=== PATIENT | female | born 1955 | race Caucasian/White ===

== ENCOUNTER → 2016-11-29 | Outpatient (CLI) | payer BC, OTHER ==
[~2016-11-29] MED LIST: CITA20TA12 PO; DOCU100T7 PO; FERR325C PO; FISH1CAP15 PO; LISI-552 PO; PANT40SU PO; POTA10TA36 PO
--- OUTSIDE RECORDS SUMMARY | 2016-11-29 14:19 | XMS REPORT | Continuity of Care Document ---
Author Author [facility] Organization [facility] Address Unknown Phone Unavailable Allergies Active Description Code Type Severity Reaction Onset Reported/Identified Relationship to Patient Clinical Status Yes codeine [id number] Drug Allergy Unknown N/A 06/07/2011 Yes morphine [id number] Drug Allergy Unknown N/A 06/07/2011 Medications Problems Date Dx Coded Attending Type Code Diagnosis Diagnosed By 09/04/2014 Ot 793.80 09/04/2014 Ot V76.12 09/04/2014 Ot 793.80 09/04/2014 MERARY MCP Ot V76.12 09/04/2014 MERARY MC FORM BUILDING SUPERVISOR Ot V76.12 09/10/2015 Ot 793.80 09/10/2015 Ot V76.12 09/10/2015 Ot 793.80 09/10/2015 MERARY MC FORM BUILDING SUPERVISOR Ot V76.12 09/10/2015 MERARY MC FORM BUILDING SUPERVISOR Ot V76.12 09/12/2015 RICA SARMIENTO Ot Z12.31 09/26/2015 RICA SARMIENTO Ot Z12.31 09/02/2016 GUDELIA GARLAND DO Ot Z12.31 ENCNTR SCREEN MAMMOGRAM FOR MALIGNANT NE 09/02/2016 GUDELIA GARLAND DO Ot Z12.31 ENCNTR SCREEN MAMMOGRAM FOR MALIGNANT NE 09/20/2016 GUDELIA GARLAND DO Ot Z12.31 ENCNTR SCREEN MAMMOGRAM FOR MALIGNANT NE Procedures Results Encounters ACCT No. Visit Date/Time Discharge Status Pt. Type Provider Facility Loc./Unit Complaint [id number] 09/10/2015 09:26:00 2014 23:59:59 CLS Outpatient RICA SARMIENTO [facility] RAD [id number] 08/27/2014 14:42:00 2013 23:59:59 CLS Outpatient MERARY MC [facility] RAD [id number] 08/14/2013 11:02:00 2012 23:59:59 CLS Outpatient MERARY MC [facility] RAD [id number] 09/01/2016 09:14:00 ACT Outpatient GUDELIA GARLAND DO [facility] RAD SCREENING [id number] 08/21/2012 13:40:00 Document Registration [id number] 08/09/2012 09:59:00 Document Registration
--- NOTE | 2016-11-29 15:15 | Diagnostic Imaging Report ---
INDICATION: Neck pain x2 days. Cervical spine: FINDINGS: AP and lateral views of the cervical spine show normal vertebral body height and alignment. Disc spaces are well maintained. There is no prevertebral soft tissue swelling. IMPRESSION: Negative cervical spine. Dictated by: Dictated on workstation # [id number]
== END ==
LOC: RAD 14:16
PROVIDERS: ATTEND Nurse Practitioner Family
DX: M54.2 Cervicalgia (principal)
CPT/HCPCS: 72040

== ENCOUNTER → 2016-12-09 | Outpatient (CLI) | payer BC, OTHER ==
--- OUTSIDE RECORDS SUMMARY | 2016-12-09 10:21 | XMS REPORT | Continuity of Care Document ---
Author Author [facility] Organization [facility] Address Unknown Phone Unavailable Allergies Active Description Code Type Severity Reaction Onset Reported/Identified Relationship to Patient Clinical Status Yes codeine [id number] Drug Allergy Unknown N/A 06/07/2011 Yes morphine [id number] Drug Allergy Unknown N/A 06/07/2011 Medications Problems Date Dx Coded Attending Type Code Diagnosis Diagnosed By 09/04/2014 Ot 793.80 09/04/2014 Ot V76.12 09/04/2014 Ot 793.80 09/04/2014 MERARY MC Ot V76.12 09/04/2014 MERARY MC Ot V76.12 09/10/2015 Ot 793.80 09/10/2015 Ot V76.12 09/10/2015 Ot 793.80 09/10/2015 MERARY MCP Ot V76.12 09/10/2015 MERARY MC Ot V76.12 09/12/2015 RICA SARMIENTO Ot Z12.31 09/26/2015 RICA SARMIENTO Ot Z12.31 09/02/2016 GUDELIA GARLAND DO Ot Z12.31 ENCNTR SCREEN MAMMOGRAM FOR MALIGNANT NE 09/02/2016 GUDELIA GARLAND DO Ot Z12.31 ENCNTR SCREEN MAMMOGRAM FOR MALIGNANT NE 09/20/2016 GUDELIA GARLAND DO Ot Z12.31 ENCNTR SCREEN MAMMOGRAM FOR MALIGNANT NE 11/30/2016 COOKIE AGOSTO Ot M54.2 CERVICALGIA Procedures Results Encounters ACCT No. Visit Date/Time Discharge Status Pt. Type Provider Facility Loc./Unit Complaint [id number] 09/10/2015 09:26:00 2014 23:59:59 CLS Outpatient RICA SARMIENTO [facility] RAD [id number] 08/27/2014 14:42:00 2013 23:59:59 CLS Outpatient MERARY MC DIET CONSULTANT [facility] RAD [id number] 08/14/2013 11:02:00 2012 23:59:59 CLS Outpatient MERARY MC DIET CONSULTANT [facility] RAD [id number] 11/29/2016 14:16:00 ACT Outpatient COOKIE AGOSTOP [facility] RAD CERVICAL PAIN [id number] 09/01/2016 09:14:00 ACT Outpatient GUDELIA GARLAND DO [facility] RAD SCREENING [id number] 08/21/2012 13:40:00 Document Registration [id number] 08/09/2012 09:59:00 Document Registration
--- NOTE | 2016-12-09 15:13 | Diagnostic Imaging Report ---
INDICATION: Cough, shortness of breath. No priors for comparison. FINDINGS: Patchy nodular five-lobed infiltrative pattern is present which could reflect nodular multifocal pneumonia or a pattern of metastatic disease. Unless there are convincing clinical features of acute pneumonia, would recommend CT at this time as further evaluation. Even if there are convincing clinical features of pneumonia, radiographic followup to confirm resolution or improvement is appropriate. No effusion or pneumothorax. IMPRESSION: Innumerable nodular patchy foci bilaterally are indeterminate inflammatory versus neoplastic. Followup recommended based upon the clinical situation as described. Dictated by: Dictated on workstation # [id number]
== END ==
LOC: RAD 10:17
PROVIDERS: ATTEND Family Medicine
DX: R91.8 Other nonspecific abnormal finding of lung field (principal)
CPT/HCPCS: 71020

== ENCOUNTER 2016-12-20 05:40 | Outpatient (CLI) | payer BC, OTHER ==
[~2016-12-20] VITALS: Ht 156.2 cm; Wt 79.4 kg
--- OUTSIDE RECORDS SUMMARY | 2016-12-20 05:43 | XMS REPORT | Continuity of Care Document ---
Author Author [facility] Organization [facility] Address Unknown Phone Unavailable Allergies Active Description Code Type Severity Reaction Onset Reported/Identified Relationship to Patient Clinical Status Yes codeine [id number] Drug Allergy Unknown N/A 06/07/2011 Yes morphine [id number] Drug Allergy Unknown N/A 06/07/2011 Medications Problems Date Dx Coded Attending Type Code Diagnosis Diagnosed By 09/04/2014 Ot 793.80 09/04/2014 Ot V76.12 09/04/2014 Ot 793.80 09/04/2014 MERARY MCP Ot V76.12 09/04/2014 MERARY MC DELIVERY MOTORCYCLE DRIVER Ot V76.12 09/10/2015 Ot 793.80 09/10/2015 Ot V76.12 09/10/2015 Ot 793.80 09/10/2015 MERARY MC DELIVERY MOTORCYCLE DRIVER Ot V76.12 09/10/2015 MERARY MC DELIVERY MOTORCYCLE DRIVER Ot V76.12 09/12/2015 RICA SARMIENTO DELIVERY MOTORCYCLE DRIVER Ot Z12.31 09/26/2015 RICA SARMIENTO DELIVERY MOTORCYCLE DRIVER Ot Z12.31 09/02/2016 GUDELIA GARLAND DO S Ot Z12.31 ENCNTR SCREEN MAMMOGRAM FOR MALIGNANT NE 09/02/2016 TOÑITO GARLAND DOLINE S Ot Z12.31 ENCNTR SCREEN MAMMOGRAM FOR MALIGNANT NE 09/20/2016 GUDELIA GARLAND DO S Ot Z12.31 ENCNTR SCREEN MAMMOGRAM FOR MALIGNANT NE 11/30/2016 COOKIE AGOSTO DELIVERY MOTORCYCLE DRIVER Ot M54.2 CERVICALGIA 12/16/2016 Ot 793.80 UNSPEC ABNORMAL MAMMOGRAM 12/16/2016 Ot V76.12 OTH SCREEN MAMMO-MALIGN NEOPLASM OF TIMBO 12/16/2016 Ot 793.80 UNSPEC ABNORMAL MAMMOGRAM 12/16/2016 MERARY MC DELIVERY MOTORCYCLE DRIVER Ot V76.12 OTH SCREEN MAMMO-MALIGN NEOPLASM OF TIMBO 12/16/2016 MERARY MC DELIVERY MOTORCYCLE DRIVER Ot V76.12 OTH SCREEN MAMMO-MALIGN NEOPLASM OF TIMBO 12/16/2016 RICA SARMIENTO Ot Z12.31 ENCNTR SCREEN MAMMOGRAM FOR MALIGNANT NE 12/16/2016 GUDELIA GARLAND DO Ot Z12.31 ENCNTR SCREEN MAMMOGRAM FOR MALIGNANT NE 12/16/2016 COOKIE AGOSTO Ot M54.2 CERVICALGIA 12/16/2016 GUDELIA GARLAND DO Ot R91.8 OTHER NONSPECIFIC ABNORMAL FINDING OF ASAF 12/16/2016 COOKIE AGOSTO Ot M54.2 CERVICALGIA 12/16/2016 COOKIE AGOSTO Ot M54.2 CERVICALGIA Procedures Results Encounters ACCT No. Visit Date/Time Discharge Status Pt. Type Provider Facility Loc./Unit Complaint [id number] 09/10/2015 09:26:00 2014 23:59:59 CLS Outpatient RICA SARMIENTO [facility] RAD SCREENING [id number] 08/27/2014 14:42:00 2013 23:59:59 CLS Outpatient MERARY MC [facility] RAD ROUTINE [id number] 08/14/2013 11:02:00 2012 23:59:59 CLS Outpatient MERARY MC [facility] RAD SCREENING [id number] 12/20/2016 05:40:00 ACT Outpatient KELLY MASSEY MD [facility] PREOP SCREENING;ANEMIA [id number] 12/09/2016 10:17:00 ACT Outpatient GUDELIA GARLAND DO [facility] RAD COUGH [id number] 11/29/2016 14:16:00 ACT Outpatient COOKIE AGOSTO [facility] RAD CERVICAL PAIN [id number] 09/01/2016 09:14:00 ACT Outpatient GUDELIA GARLAND DO [facility] RAD SCREENING [id number] 08/21/2012 13:40:00 Document Registration [id number] 08/09/2012 09:59:00 Document Registration
[2016-12-20] MEDS ORDERED: DOCU100T7 PO (11:55)
[2016-12-20] MEDS ORDERED: PANT40SU PO (11:55)
[2016-12-20] MEDS ORDERED: CITA20TA12 PO (11:55)
[2016-12-20] MEDS ORDERED: FISH1CAP15 PO (11:55)
[2016-12-20] MEDS ORDERED: POTA10TA36 PO (11:55)
[2016-12-20] MEDS ORDERED: FERR325C PO (11:55)
[2016-12-20] MEDS ORDERED: LISI-552 PO (11:55)
== END 2016-12-20 12:00 ==
LOC: PREOP 05:40
PROVIDERS: ATTEND Surgery Pediatric Surgery
DX: Z01.818 Encounter for other preprocedural examination (principal); Z12.11 Encounter for screening for malignant neoplasm of colon; D64.9 Anemia, unspecified

== ENCOUNTER → 2016-12-20 | Outpatient (CLI) | payer BC, OTHER ==
--- OUTSIDE RECORDS SUMMARY | 2016-12-20 10:18 | XMS REPORT | Continuity of Care Document ---
Author Author [facility] Organization [facility] Address Unknown Phone Unavailable Allergies Active Description Code Type Severity Reaction Onset Reported/Identified Relationship to Patient Clinical Status Yes codeine [id number] Drug Allergy Unknown N/A 06/07/2011 Yes morphine [id number] Drug Allergy Unknown N/A 06/07/2011 Medications Problems Date Dx Coded Attending Type Code Diagnosis Diagnosed By 09/04/2014 Ot 793.80 09/04/2014 Ot V76.12 09/04/2014 Ot 793.80 09/04/2014 MERARY MCP Ot V76.12 09/04/2014 MERARY MC HAZARDOUS MATERIALS ANALYST Ot V76.12 09/10/2015 Ot 793.80 09/10/2015 Ot V76.12 09/10/2015 Ot 793.80 09/10/2015 MERARY MC HAZARDOUS MATERIALS ANALYST Ot V76.12 09/10/2015 MERARY MC HAZARDOUS MATERIALS ANALYST Ot V76.12 09/12/2015 RICA SARMIENTO HAZARDOUS MATERIALS ANALYST Ot Z12.31 09/26/2015 RICA SARMIENTO HAZARDOUS MATERIALS ANALYST Ot Z12.31 09/02/2016 GUDELIA GARLAND DO S Ot Z12.31 ENCNTR SCREEN MAMMOGRAM FOR MALIGNANT NE 09/02/2016 TOÑITO GARLAND DOLINE S Ot Z12.31 ENCNTR SCREEN MAMMOGRAM FOR MALIGNANT NE 09/20/2016 GUDELIA GARLAND DO S Ot Z12.31 ENCNTR SCREEN MAMMOGRAM FOR MALIGNANT NE 11/30/2016 COOKIE AGOSTO HAZARDOUS MATERIALS ANALYST Ot M54.2 CERVICALGIA 12/16/2016 Ot 793.80 UNSPEC ABNORMAL MAMMOGRAM 12/16/2016 Ot V76.12 OTH SCREEN MAMMO-MALIGN NEOPLASM OF TIMBO 12/16/2016 Ot 793.80 UNSPEC ABNORMAL MAMMOGRAM 12/16/2016 MERARY MC HAZARDOUS MATERIALS ANALYST Ot V76.12 OTH SCREEN MAMMO-MALIGN NEOPLASM OF TIMBO 12/16/2016 MERARY MC HAZARDOUS MATERIALS ANALYST Ot V76.12 OTH SCREEN MAMMO-MALIGN NEOPLASM OF [...] Status Pt. Type Provider Facility Loc./Unit Complaint [id number] 09/10/2015 09:26:00 2014 23:59:59 CLS Outpatient RICA SARMIENTO [facility] RAD SCREENING [id number] 08/27/2014 14:42:00 2013 23:59:59 CLS Outpatient MERARY MC [facility] RAD ROUTINE [id number] 08/14/2013 11:02:00 2012 23:59:59 CLS Outpatient MERARY MC [facility] RAD SCREENING [id number] 12/20/2016 05:40:00 ACT Outpatient KELLY MASSEY MD [facility] PREOP SCREENING;ANEMIA [id number] 12/09/2016 10:17:00 ACT Outpatient GUDELIA GARLAND DO [facility] RAD COUGH [id number] 11/29/2016 14:16:00 ACT Outpatient COOKIE AGOSTO [facility] RAD CERVICAL PAIN [id number] 09/01/2016 09:14:00 ACT Outpatient GUDELIA GARLAND DO [facility] RAD SCREENING [id number] 08/21/2012 13:40:00 Document Registration [id number] 08/09/2012 09:59:00 Document Registration
--- NOTE | 2016-12-20 11:33 | Diagnostic Imaging Report ---
EXAMINATION: PA and lateral views of the chest. INDICATION: Cough. Pneumonia. COMPARISON: 12/09/2016. FINDINGS: Bilateral infiltrates are seen similar to the previous exam with nodular components noted. The heart size is normal. No effusion or pneumothorax. The mediastinum and tessa appear unremarkable. There is a gastric band seen in the upper abdomen. IMPRESSION: Stable extensive bilateral infiltrates with nodules seen. This could possibly be infectious in etiology. If the patient does not have clinical picture of an active pneumonia, then CT evaluation would be recommended. Otherwise, followup chest x-ray in six weeks after treatment to document resolution would be recommended. Dictated by: Dictated on workstation # [id number]
== END ==
LOC: RAD 10:15
PROVIDERS: ATTEND Family Medicine
DX: J18.9 Pneumonia, unspecified organism (principal)
CPT/HCPCS: 71020

== ENCOUNTER 2016-12-22 10:33 | Day surgery (SDC) | payer BC, OTHER ==
[~2016-12-22] VITALS: Ht 156.2 cm; Wt 79.4 kg
--- OUTSIDE RECORDS SUMMARY | 2016-12-22 10:36 | XMS REPORT | Continuity of Care Document ---
Author Author [facility] Organization [facility] Address Unknown Phone Unavailable Care Team Providers Care Oil Lease Buyer Name Role Phone GUDELIA GARLAND DO PCP Insurance Providers Payer Name Policy Number Subscriber Name Relationship [facility] [id number] Dejuan Luis 18 Self / Same As Patient Self Pay Pending [facility] Apprv [id number] Dejuan Luis 18 Self / Same As Patient Problems No problem information available. Medications Current Home Medications Medication Dose Units Route Directions Days/Qty Instructions Start Date Lisinopril 20 Mg 20 Mg Oral Daily 12/20/16 Ferrous Sulfate 325 Mg 325 Mg Oral Daily 12/20/16 Potassium Chloride 10 Meq 10 Meq Oral Daily 12/20/16 Docusate Sodium 100 Mg 100 Mg Oral Daily 12/20/16 Fish Oil/Dha/Epa 1 Each 1 Each Oral Daily 12/20/16 Citalopram Hydrobromide 20 Mg 20 Mg Oral Daily 12/20/16 Pantoprazole Sodium 40 Mg 40 Mg Oral Daily 12/20/16 Social History Social History Problem Response Recorded Date/Time Recent Foreign Travel No 12/20/2016 10:13am Hospital Discharge Instructions Current inpatient/outpatient. Discharge instructions are currently unavailable. Plan of Care Prescriptions Functional Status No functional status results. Allergies, Adverse Reactions, Alerts Allergen Type Severity Reaction Status Last Updated Morphine Allergy Unknown Active 12/20/16 Codeine Allergy Unknown Active 12/20/16 Immunizations No immunization records. Vital Signs Acute Vital Signs Vital Response Date/Time Height (Feet) 5 feet 12/20/2016 11:51am Height (Inches) 1.50 inches 12/20/2016 11:51am Height (Calculated Centimeters) 156.108762 cm 12/20/2016 11:51am Weight (Pounds) 175 pounds 12/20/2016 11:51am Weight (Ounces) 0.0 oz 12/20/2016 11:51am Weight (Calculated Grams) 08347.67 gm 12/20/2016 11:51am Weight (Calculated Kilograms) 79.518651 kilograms 12/20/2016 11:51am Calculated BMI 32.5 12/20/2016 11:51am Results No known relevant diagnostic tests, laboratory data and/or discharge summary. Procedures No known history of procedures. Encounters Encounter Location Arrival/Admit Date Discharge/Depart Date Attending Provider Registered Clinic [facility] 12/20/16 10:15am GUDELIA GARLAND DO Departed Clinic [facility] 12/20/16 5:40am 12/20/16 12: 00pm KELLY MASSEY MD Registered Clinic [facility] 12/09/16 10:17am GUDELIA GARLAND DO Registered Clinic [facility] 11/29/16 2:16pm COOKIE AGOSTO
--- OUTSIDE RECORDS SUMMARY | 2016-12-22 10:37 | XMS REPORT | Continuity of Care Document ---
Author Author [facility] Organization [facility] Address Unknown Phone Unavailable Care Team Providers Care Manufacturing Associate Name Role Phone GUDELIA GARLAND DO PCP Insurance Providers Payer Name Policy Number Subscriber Name Relationship [facility] [id number] Dejuan Luis 18 Self / Same As Patient Self Pay Pending [facility] Apprv [id number] Dejuan Luis 18 Self / Same As [...] 1.50 inches 12/20/2016 11:51am Height (Calculated Centimeters) 156.522040 cm 12/20/2016 11:51am Weight (Pounds) 175 pounds 12/20/2016 11:51am Weight (Ounces) 0.0 oz 12/20/2016 11:51am Weight (Calculated Grams) 83058.67 gm 12/20/2016 11:51am Weight (Calculated Kilograms) 79.694271 kilograms 12/20/2016 11:51am Calculated BMI 32.5 12/20/2016 11:51am Results No known relevant diagnostic tests, laboratory data and/or discharge summary. Procedures No known history of procedures. Encounters Encounter Location Arrival/Admit Date Discharge/Depart Date Attending Provider Registered Clinic [facility] 12/20/16 10:15am GUDELIA GARLAND DO Departed Clinic [facility] 12/20/16 5:40am 12/20/16 12: 00pm KELLY MASSEY MD Registered Clinic [facility] 12/09/16 10:17am GUDELIA GARLAND DO Registered Clinic [facility] 11/29/16 2:16pm COOKIE AGOSTO
[2016-12-22] MEDS ORDERED: NALOXONE 0.4 MG/ML 1 ML (NARCAN) VIAL IVP PRN (10:45)
[2016-12-22] MEDS ORDERED: LIDOCAINE JELLY 2% (XYLOCAINE) 5 ML TUBE MM PRN (10:45)
[2016-12-22] MEDS ORDERED: FLUMAZENIL (ROMAZICON) 0.1 MG/ML 5 ML VIAL INJ PRN (10:45)
[2016-12-22] MEDS ORDERED: NS IV 500 ML 500 ML IV SCH (10:45)
[2016-12-22] MEDS ORDERED: NS IV 500 ML 500 ML ONE ×2 (10:54→12:27)
--- NOTE | 2016-12-22 10:56 | Progress Note-Pre Operative ---
Pre-Operative Progress Note H&P Reviewed The H&P was reviewed, patient examined and no changes noted. Date H&P Reviewed: Dec 22, 2016 Time H&P Reviewed: 10:50 Pre-Operative Diagnosis: GERD, anemia KELLY MASSEY MD Dec 22, 2016 10:56 am
--- NOTE | 2016-12-22 10:56 | Conscious Sedation/ASA ---
Conscious Sedation Pre-Proced Time Reviewed: 10:50 ASA Class: 2 Airway Mallampati Classification: ([place] appropriate class) I. II. III, IV Lungs Heart ASA score ASA 1: a normal healthy patient ASA 2: a patient with a mild systemic disease (mid diabetes, controlled hypertension, obesity ASA 3: a patient with a severe systemic disease that limits activity (angina , COPD, prior Myocardial infarction) ASA 4: a patient with an incapacitating disease that is a constant threat to life (CHF, renal failure) ASA 5: a moribund patient not expected to survive 24 hrs. (ruptured aneurysm) ASA 6: a declared brain patient whose organs are being harvested. For emergent operations, add the letter E after the classification Grade 2 Sedation Plan: Analgesia, Amnesia, Plan communicated to team members, Discussed options with patient/fam, Discussed risks with patient/fam Note The patient is an appropriate candidate to undergo the planned procedure, sedation, and anesthesia. The patient immediately re-assessed prior to indication. KELLY MASSEY MD Dec 22, 2016 10:56 am
[2016-12-22] MEDS ORDERED: ACETAMINOPHEN 325 MG TABLET/CAPLET (TYLENOL) PO PRN (11:00)
[2016-12-22] MEDS ORDERED: ONDANSETRON 4 MG/2 ML (SDV) Z0FRAN IV PRN (11:00)
[2016-12-22] MEDS ORDERED: HYDROcodone/APAP 5 MG/325 MG (LORTAB) TAB PO PRN (11:00)
[2016-12-22 11:37] VITALS: BP 119/43
[2016-12-22] MEDS ORDERED: fentaNYL INJECTION 100 MCG/2 ML AMP ONE ×2 (11:48→11:49)
[2016-12-22] MEDS ORDERED: MIDAZOLAM 2 MG/2 ML (VERSED) VIAL ONE ×3 (11:48)
[2016-12-22] MEDS: HURRICAINE EXT TUBE (BENZOCAINE) XX PRN ×2 (11:53→11:57)
[2016-12-22] MEDS: fentaNYL INJECTION 100 MCG/2 ML AMP IVP PRN ×4 (11:54→12:13)
[2016-12-22] MEDS: MIDAZOLAM 2 MG/2 ML (VERSED) VIAL IVP PRN ×3 (11:55→12:10)
--- NOTE | 2016-12-22 12:39 | Progress Note-Post Operative ---
Post-Operative Progess Note Pre-Operative Diagnosis GERD, anemia Post-Operative Diagnosis reflux esophagitis(class B), intact band, moderate gastritis. chronic stage 2 ext and int hemorrhoids, moderate sigmoid diverticulosis, polyp sigmoid Post-Op Procedure Note Date of Procedure: Dec 22, 2016 Name of Procedure: EGD with bx Colonoscopy with bx Anesthesia Type CS Estimated blood loss (mL): minimal Specimen(s) collected ge jxn, antrum, sigmoid polyp KELLY MASSEY MD Dec 22, 2016 12:39 pm
--- NOTE | 2016-12-22 12:40 | Discharge Inst-Surgical ---
D/C Lap Instructions-SHILPA Follow Up 5 years Activity as tolerated High Fiber Diet 25g or more per day Avoid Alcohol, Caffeine, Spicy [place] and Acid foods. Drink 64 fluid oz or more of fluids per day. Symptoms to Report: Fever over 101 degree F, Nausea/Vomiting If any problems/questions: Contact your physician or go to Emergency Room KELLY MASSEY MD Dec 22, 2016 12:40 pm
[2016-12-22 13:15] VITALS: BP 90/48
[2016-12-22 13:41] VITALS: BP 96/52
[2016-12-22 13:50] VITALS: BP 96/52
--- NOTE | 2016-12-24 07:34 | OPERATIVE REPORT ---
PROCEDURE PHYSICIAN: KELLY GONGORA DATE OF PROCEDURE: 12/22/2016 ATTENDING PRIMARY CARE PHYSICIAN: Dr. Shania Mcdonnell. PREOPERATIVE DIAGNOSES: 1. Gastroesophageal reflux disease. 2. Anemia. 3. Constipation. POSTOPERATIVE DIAGNOSES: 1. Reflux esophagitis, class B. 2. Intact laparoscopic adjustable gastric band with no erosion or slippage. 3. Moderate gastritis. 4. No active bleeding. 5. Chronic stage II external and internal hemorrhoids. 6. Moderate sigmoid diverticulosis. 7. Small sigmoid polyp 2 to 3 mm in size. PROCEDURES: 1. EGD with biopsy. 2. Colonoscopy with biopsy. SURGEON: Dr. Gongora. ANESTHESIA: Conscious sedation. ESTIMATED BLOOD LOSS: Minimal. FINDINGS: EGD: 1. Reflux esophagitis, class B. 2. Intact laparoscopic adjustable gastric band. No band slippage or erosion. 3. Moderate severity gastritis. 4. No ulcers, polyps or any neoplasms, as well as no active bleeding sources. 5. Pylorus and duodenum appeared normal. COLONOSCOPY: 1. Chronic, stage II external and internal hemorrhoids, not actively edematous or inflamed and no bleeding. 2. There is a small polyp of the sigmoid colon, approximately 2 to 3 mm in size. 3. A moderate severity sigmoid diverticulosis with no bleeding. 4. The remainder of the colon was normal. DISPOSITION: The patient tolerated the procedure well. BRIEF HISTORY: Ms. Klarissa Luis is a 61-year-old female who has a history of gastroesophageal reflux disease. She was also found to be anemic recently. She does not report any known red blood per rectum nor any dark tarry stools. Her last colonoscopy was greater than 10 years ago. She does report that that she has had a history of constipation in the past, requiring stool softeners as well as laxatives. PROCEDURE: The patient was brought to the endoscopy suite, laid in left lateral decubitus position with the head slightly elevated. After adequate IV pain and sedative medications and conscious sedation anesthesia, the mouthpiece was applied. The endoscope was placed in the mouth, visualizing the pharynx and hypopharyngeal region. Vocal cords, epiglottis and vallecula identified and appeared normal. The endoscope was then intubated into the esophageal opening and the esophagus insufflated. The endoscope was advanced through the first, second, and 3rd portions esophagus at the level of the GE junction, a reflux esophagitis, class B identified. There were no ulcers or strictures identified in this region. A biopsy was taken of the GE junction with forceps of visualization of good hemostasis. The gastric pouch appeared normal in terms of size. The endoscope was then easily advanced through the band and into the stomach. The endoscope was then retroflexed visualizing an intact lap band with no erosions or slippage. There was a moderate severity gastritis. There no ulcers, polyps or any neoplasms, as well as no active bleeding sources. A biopsy was taken of the stomach antrum, with forceps with visualization of good hemostasis. The endoscope was advanced through the pylorus and first and second portions of the duodenum, which appeared normal. The endoscope was then slowly withdrawn while look and suctioning residual air no additional findings. The patient tolerated this portion of the procedure well. For her reflux, we will recommend the necessary lifestyle and diet accommodation including smaller, more frequent meals, avoidance of eating at night, as well as head elevation while laying supine. She also needs to proceed with a high protein diet with lean meat protein sources first to promote restriction. However, once she feels the sensation of fullness she needs to stop eating. COLONOSCOPY: Under the same conscious sedation anesthesia we then proceeded with the colonoscopy portion the procedure. A digital rectal examination was performed which revealed chronic stage II external and internal hemorrhoids, not actively edematous or inflamed and no bleeding. Normal sphincter tone was felt and there were no palpable masses. The endoscope was then intubated and the anus rectum gently insufflated. The endoscope was then advanced through the valves of Romero of the rectum with no polyps or any neoplasms identified. Through the sigmoid colon, a small polyp identified approximately 2 to 3 mm in size. This was biopsied and destroyed using forceps and electrocautery with visualization of good hemostasis. The endoscope was advanced through the sigmoid colon where a moderate sigmoid diverticulosis identified. There were no mucosal inflammatory changes to indicate any active diverticulitis as well as no bleeding. The endoscope was then advanced through the remainder of the descending, transverse, and ascending colon of the cecum. These segments were normal. The endoscope was then slowly withdrawn while taking a second look and suctioning residual air with no additional findings. The patient tolerated this portion the procedure well. We will recommend a high fiber diet with at least 25 to 30 grams of fiber per day, as well as at least 64 fluid ounces of water daily to promote soft stools on a daily basis. We will recommend a follow-up colonoscopy in 5 years. Job ID: [id number] Dictated Date: 12/22/2016 12:32:57 Camera Tuning Engineer Date: 12/24/2016 07:22:41 / schuyler GRANADOS
== END 2016-12-22 13:50 | disposition home or self-care (01) ==
LOC: ENDO 10:33
PROVIDERS: ATTEND Surgery Pediatric Surgery
DX: K21.0 Gastro-esophageal reflux disease with esophagitis (principal); K63.5 Polyp of colon; K29.60 Other gastritis without bleeding; K64.1 Second degree hemorrhoids; K57.30 Diverticulosis of large intestine without perforation or abscess without bleeding; Z87.891 Personal history of nicotine dependence; Z79.899 Other long term (current) drug therapy; I10 Essential (primary) hypertension; E78.00 Pure hypercholesterolemia, unspecified; D64.9 Anemia, unspecified; F32.9 Major depressive disorder, single episode, unspecified; Z98.84 Bariatric surgery status
CPT/HCPCS: 88305

== ENCOUNTER → 2017-01-14 | Outpatient (CLI) | payer BC ==
--- NOTE | 2017-01-14 14:10 | Diagnostic Imaging Report ---
PROCEDURE: CT chest without contrast. TECHNIQUE: Multiple contiguous axial images were obtained through the chest without the use of intravenous contrast. INDICATION: Followup of bilateral nodules. FINDINGS: There are nodules scattered diffusely throughout both lungs. Some of these have an irregular spiculated pattern. These range from size of 3 mm up to 2 cm. These appear somewhat confluent in the superior segments of the lower lobes bilaterally. There is no mediastinal or hilar adenopathy of pathologic size. There is no mediastinal or hilar adenopathy of pathologic size. Bone windows show no destructive bony lesions. No pleural effusions or pericardial effusions. The adrenal glands are not enlarged. Lap-Band is noted to be present and appears in good position. IMPRESSION: Diffuse nodular infiltrative process noted throughout both lungs. This could represent atypical infectious process; however, a metastatic lung disease would also be in the differential. Dictated by: Dictated on workstation # [id number]
== END ==
LOC: RAD 13:12
PROVIDERS: ATTEND Family Medicine
DX: R91.8 Other nonspecific abnormal finding of lung field (principal)
CPT/HCPCS: 71250

== ENCOUNTER 2017-02-10 06:53 | Day surgery (SDC) | payer BC ==
[~2017-02-10] VITALS: Ht 156.2 cm; Wt 79.8 kg
[2017-02-10] VITALS (13 sets, daily range): BP systolic 101–144; BP diastolic 58–78
[2017-02-10 07:27] LABS: MEAN PLATELET VOLUME 10.5 FL (7.4-10.4); RED BLOOD COUNT 4.22 10^6/uL (4.35-5.85); RED CELL DISTRIBUTION WIDTH 14.8 % (10.0-14.5); WHITE BLOOD COUNT 8.8 10^3/uL (4.3-11.0)
[2017-02-10 07:38] LABS: INR 1.1 (0.8-1.4)
[2017-02-10] MEDS ORDERED: LIDOCAINE 1% INJ 20 ML (XYLOCAINE) VIAL INJ ONE (08:45)
[2017-02-10] MEDS ORDERED: fentaNYL INJECTION 100 MCG/2 ML AMP IVP PRN (08:45)
--- NOTE | 2017-02-10 09:59 | Pre-Procedure Progress Note ---
Pre-Procedure Progress Note H&P Reviewed The H&P was reviewed, patient examined and no changes noted. Date H&P Reviewed: Feb 10, 2017 Time H&P Reviewed: 09:00 Pre-Procedure Diagnosis: lung MARCOS Gilliam MD Feb 10, 2017 09:59
[2017-02-10] MEDS ORDERED: HYDROcodone/APAP 5 MG/325 MG (LORTAB) TAB PO PRN (10:00)
--- NOTE | 2017-02-10 10:00 | Discharge Instructions ---
Discharge Instructions Home Medicaitons Changes Hold any current blood thinner home medications for [24 hours]. MARCOS LUCAS MD Feb 10, 2017 10:00
--- NOTE | 2017-02-10 10:25 | Diagnostic Imaging Report ---
EXAMINATION: CT-guided biopsy-lung. INDICATION: Left lower lobe mass. Numerous lung nodules. Current history and physical and other medical records are reviewed prior to the procedure. CONSENT: Informed consent was obtained from the patient. The risks, benefits, potential complications and alternatives were reviewed and all questions answered to the patient's satisfaction. The patient's vital signs, cardiac rhythm, and pulse oximetry were observed throughout the procedure by qualified nursing personnel. Sedation/medications: none. FINDINGS: Left lower lobe mass. PROCEDURE: After maximal sterile barrier technique preparation and draping, 1% lidocaine was utilized for local anesthesia. With the patient in left side down position, and via posterior intercostal approach, a 19-gauge guide needle is introduced into the left lower lobe mass under CT scan guidance. After confirming adequate positioning with saved CT images, multiple 20 gauge core biopsy specimens were obtained. 3 cc of autologous blood patch injected in the tract as the guide needle was removed The patient tolerated the procedure well with no immediate complications. IMPRESSION: Successful CT-guided biopsy of left lower lobe mass. Dictated by: Dictated on workstation # [id number]
--- NOTE | 2017-02-10 14:31 | Diagnostic Imaging Report ---
Portable upright radiograph of the chest. INDICATION: Post lung biopsy. FINDINGS: There are numerous pulmonary nodules bilaterally. The biopsy was performed from the left lower lobe dominant lesion with no mass identified. Post biopsy changes with increased infiltrate in the left lower lobe compared to 12/20/2016 are seen. The heart size is normal. No effusion or pneumothorax. IMPRESSION: Numerous pulmonary nodules with left lower lobe post biopsy changes. No pneumothorax. Dictated by: Dictated on workstation # [id number]
== END 2017-02-10 14:28 | disposition home or self-care (01) ==
LOC: RAD 06:53 → SURG 10:48 → RAD 14:28
PROVIDERS: ATTEND Family Medicine
DX: C34.32 Malignant neoplasm of lower lobe, left bronchus or lung (principal)
CPT/HCPCS: 36415; 71035; 77012; 81235; 82962; 85027; 85610; 85730; 88305; 88341; 88342; 88344; 88381

== ENCOUNTER → 2017-02-24 | Outpatient (CLI) | payer BC ==
[~2017-02-24] MED LIST changes: +BARIUM SUSPENSION 2.1% (VANILLA SILQ) 450 ML PO ONE; +CATHETER FLUSH 10 ML SYR IV PRN; +IOHEXOL 350 MG/ML 100 ML (OMNIPAQUE 350) VIAL IV ONE; +NS 100 ML (IVPB) BAG IV ONE
--- NOTE | 2017-02-24 16:51 | Diagnostic Imaging Report ---
PROCEDURE: CT of the chest and pelvis with contrast and CT of the abdomen with and without contrast. TECHNIQUE: Precontrast acquisitions were acquired through the abdomen. Multiple contiguous axial images were obtained through the chest, abdomen and pelvis after administration of intravenous contrast. INDICATION: Lung cancer. 100 mL of Omnipaque-350 is administered intravenously. COMPARISON: 01/14/2017. No other studies are available for comparison. FINDINGS: CT CHEST: There are innumerable lung nodules in the chest seen bilaterally with some dominant masses up to 3 cm in the right lower lobe and up to 2.7 cm in the left lower lobe. Some of the nodules are confluent and other innumerable subcentimeter lymph nodes are seen diffusely in the lungs. There is a new small right pleural effusion. A tiny left pleural effusion similar to the prior study is seen. There is no significant mediastinal, hilar, or axillary lymph node enlargement seen. There is mild dilatation of the distal esophagus. This could be related to the gastric band or pseudoachalasia. The distal esophageal wall thickening also is probably related to esophagitis. The thoracic aorta is normal in caliber. The heart size is normal. No pericardial effusion. The osseous structures demonstrate degenerative changes with bridging syndesmophytes in the gfx-pl-zpfvr thoracic spine levels. CT ABDOMEN AND PELVIS: A gastric band is seen in place. There is a reservoir in the anterior abdominal wall and a catheter also noted connecting the reservoir to the gastric band. The liver demonstrates minimal intrahepatic biliary dilatation. The gallbladder is not seen, presumably related to cholecystectomy. Correlate with history. The spleen is not enlarged. The adrenals appear unremarkable. The pancreatic duct is mildly dilated in the distal body and tail portions with no significant dilatation in the rest of the pancreas. There is subtle decreased enhancement and fullness in the pancreatic body seen. A pancreatic mass is not excluded. The area is difficult to delineate but is about 2.5 cm in size. The kidneys have symmetric enhancement and contrast excretion. There is no hydronephrosis. The unenhanced phase demonstrates no stones. There is a complex large cystic and solid mass in the pelvis measuring 15.4 x 12.7 x 14.4 cm abutting the superior aspect of the uterus and is inseparable from the adnexa. This is concerning for an ovarian neoplasm. The mass extends from the pelvis into the lower central aspect of the abdomen. The abdominal aorta is normal in caliber. No para-aortic significantly enlarged lymph node is seen. There is no bowel obstruction. The sigmoid colon however appears to be compressed by the pelvic mass. The osseous structures demonstrate no destructive mass. Prominent degenerative changes in the lower lumbar spine and SI joints seen. IMPRESSION: CT CHEST: 1. Innumerable pulmonary nodules seen bilaterally compatible with metastasis. Dominant masses in the lower lobes are seen. 2. Dilatation in the distal esophagus may relate to tight gastric band or functional abnormality. It is also thickened suggestive of esophagitis.. CT ABDOMEN AND PELVIS: 1. A 15.4 cm pelvic complex mass inseparable from the adnexa and uterus, which probably relates to a malignant ovarian neoplasm. 2. Dilatation of the pancreatic duct in the tail with subtle fullness and hypodensity in the pancreatic body. A pancreatic mass is not excluded. Further evaluation with enhanced MRI of the abdomen, pancreatic mass protocol is recommended. Report faxed to Dr. Bailey at 4:50 p.m. 02/24/2017/cb Dictated by: Dictated on workstation # [id number]
== END ==
LOC: RAD 14:27
PROVIDERS: ATTEND Internal Medicine Hematology & Oncology
DX: C34.32 Malignant neoplasm of lower lobe, left bronchus or lung (principal)
CPT/HCPCS: 71260; 74178

== ENCOUNTER → 2017-03-01 | Outpatient (CLI) | payer BC ==
[~2017-03-01] MED LIST changes: -BARIUM SUSPENSION 2.1% (VANILLA SILQ) 450 ML PO ONE; -CATHETER FLUSH 10 ML SYR IV PRN; -IOHEXOL 350 MG/ML 100 ML (OMNIPAQUE 350) VIAL IV ONE; -NS 100 ML (IVPB) BAG IV ONE
--- NOTE | 2017-03-01 16:17 | Diagnostic Imaging Report ---
EXAMINATION: PET-CT TECHNIQUE: Serum glucose level at the time of the study is: 106 mg/dL. 11.5 mCi of FDG was administered intravenously followed by obtaining PET images with corresponding noncontrast CT scan images. The CT scan was performed for anatomic correlation and attenuation correction and was not performed according to the diagnostic protocol of the areas covered. The scan was performed from the head to mid thighs. INDICATION: Initial staging of lung cancer. FINDINGS: There is homogeneous symmetric uptake in the brain. In the neck, dhqy-nx-[id number] increased FDG uptake in the tonsils is seen in a symmetric fashion with no definite underlying mass, likely physiologic. In the superior mediastinum adjacent to the left subclavian and left common carotid artery, there is moderate hypermetabolism associated with a lymph node about 1 cm in size. There are innumerable hypermetabolic nodules seen in the lungs with a maximum SUV of 8. The nodules are somewhat confluent around the tessa bilaterally with numerous subcentimeter nodules compatible with metastasis. In the abdomen, there is mild hypermetabolism with maximum SUV of 4.9 seen within an area of fullness in the pancreatic body. There is also minimal hypermetabolism seen along the peripancreatic and celiac station subcentimeter lymph nodes. There is no liver suspicious hypermetabolic focus. The spleen is not enlarged. There is a gastric band seen in place. Proximal to the band in the distal esophagus, there is prominent mucosal thickening which may relate to esophagitis with no significant FDG uptake. Urinary tract excretion of the tracer is seen. In the pelvis, there is a large predominantly cystic mass with mxrg-bh-crnvmatf hypermetabolism seen with solid components. The appearance and location is suggestive of an ovarian neoplasm. IMPRESSION: 1. Widespread lung metastasis and a minimally enlarged hypermetabolic lymph node in the superior mediastinum is seen. 2. Hypermetabolism seen in the area of fullness in the pancreatic body with suggestion of small hypermetabolic peripancreatic and celiac lymph nodes. This could potentially relate to primary pancreatic cancer with lung metastasis. 3. Large pelvic predominantly cystic mass with solid hypermetabolic components concerning for primary or metastatic adnexal malignant neoplasm. Dictated by: Dictated on workstation # [id number]
== END ==
LOC: RAD 07:50
PROVIDERS: ATTEND Internal Medicine Hematology & Oncology
DX: Z01.89 Encounter for other specified special examinations (principal); C34.32 Malignant neoplasm of lower lobe, left bronchus or lung

== ENCOUNTER → 2017-03-02 | Outpatient (CLI) | payer BC | LOC: RT 08:09 | PROVIDERS: ATTEND Internal Medicine Hematology & Oncology | DX: C34.32 Malignant neoplasm of lower lobe, left bronchus or lung (principal) | CPT/HCPCS: 94060; 94726; 94729 ==

== ENCOUNTER → 2017-03-08 | Outpatient (CLI) | payer BC ==
--- NOTE | 2017-03-08 14:13 | Diagnostic Imaging Report ---
INDICATION: Pelvic mass noted on CT. COMPARISON: CT 02/24/2017. DISCUSSION: Transabdominal and transvaginal sonographic evaluation of the pelvis was performed. The uterus is normal in echotexture and size measuring 11.0 x 6.2 x 3.5 cm. Normal endometrial thickness measuring 0.9 cm. Neither ovary is visualized, obscured by a large pelvic mass. The max appears complex with large solid and cystic components and measures overall 17 x 12 x 18 cm. There is internal color Doppler blood flow. Mass should be considered malignant until proven otherwise. Mass could represent an ovarian neoplasm. Recommend surgical consultation. IMPRESSION: 1. Large complex solid and cystic pelvic mass with internal color Doppler blood flow is highly concerning for malignancy, likely ovarian in nature. Recommend surgical consultation. Dictated by: Dictated on workstation # [id number]
== END ==
LOC: RAD 12:38
PROVIDERS: ATTEND Nurse Practitioner Adult Health
DX: C34.32 Malignant neoplasm of lower lobe, left bronchus or lung (principal); D39.10 Neoplasm of uncertain behavior of unspecified ovary; K86.89 Other specified diseases of pancreas
CPT/HCPCS: 76830; 76856

== ENCOUNTER 2017-04-06 14:10 | Outpatient (CLI) | payer BC ==
[~2017-04-06] VITALS: Ht 156.2 cm; Wt 83.3 kg
--- NOTE | 2017-04-06 11:02 | HISTORY AND PHYSICAL ---
DATE OF SERVICE: HISTORY OF PRESENT ILLNESS: The patient is a 62-year-old female who is known to us. She does have a history of morbid obesity and her medical comorbidities related to obesity including hypercholesterolemia, hypertension and depression. She underwent a Lap-Band placement by us on 05/09/2012. She was seen by us numerous times for adjustments and has done well with weight loss. In 11/2016, she did have a chest x-ray performed, which did show some bilateral lung nodules. She reports that she then underwent a CT of the abdomen and chest as well as needle biopsy of the lesion and she was found to have a moderately differentiated adenocarcinoma of the lung and she reports that she underwent numerous tests and reports that she also has lesion of the pancreas as well as the ovary and reports that she was told this was a pancreatic primary. She reports that prior to having the chest x-ray, she was having a cough for several months; however, they thought this was a chronic bronchitis and then proceeded with the chest x-ray where the nodules were identified. She reports that at this time, she is needing to undergo chemotherapy and was referred over to us in need of the Groshong port. PAST MEDICAL HISTORY: Hypertension, hypercholesterolemia, depression, constipation, anemia. PAST SURGICAL HISTORY: Tubal ligation 1984, 1984, open cholecystectomy, bilateral carpal tunnel release, bilateral surgery for heel spurs, laparoscopic gastric band 2011. ALLERGIES: MORPHINE, CODEINE. MEDICATIONS: Potassium daily, lisinopril daily, calcium daily, fish oil daily, multivitamin daily, Colace daily, MiraLax daily, Celexa daily. SOCIAL HISTORY: Previous for smoke 1 pack per day for 30 years, quit 2003. Negative for alcohol. FAMILY HISTORY: Mother with breast cancer that was diagnosed in her 50s. Father with hypertension. VITAL SIGNS: Blood pressure is 114/70. Current weight is 183.9 pounds at 5 feet 1 inch. REVIEW OF SYSTEMS: Well-nourished female in no acute distress. She is not experiencing any shortness of breath or difficulty breathing. No chest pain, palpitations or diaphoresis. No nausea, vomiting or abdominal pain. No diarrhea, but does have a history of constipation. No bright red blood per rectum. No dark or tarry stools. No fever or chills. No recent weight gain or weight loss. PHYSICAL EXAMINATION: CHEST: Clear. HEART: Regular. EXTREMITIES: No lower extremity edema. Negative Homans sign. HEENT: No scleral icterus. NECK: No cervical adenopathy. ABDOMEN: Soft, nontender and nondistended. No palpable masses. No organomegaly. ASSESSMENT AND PLAN: A 62-year-old female who is recently diagnosed with pancreatic cancer that is also metastasized to the lungs as well as ovaries. At this time, she is needing to undergo chemotherapy and will need a Groshong port placed to do so. The risks and benefits of the procedure, as well as the procedure and home care instructions were explained to the patient. The patient verbalized understanding of instructions and agrees to proceed as planned. At this time, we will proceed with scheduling the patient for insertion of a Groshong port. Job ID: [id number] DocumentID: [id number] Dictated Date: 04/05/2017 13:34:48 Elevator Serviceman Date: 04/05/2017 14:30:32 Dictated By: KATHLEEN KUMAR APRN
[2017-04-06] MEDS ORDERED: POLY17PO6 PO (14:30)
[2017-04-06] MEDS ORDERED: IPRA3AMP IH (14:30)
[2017-04-06] MEDS ORDERED: MULT-35 PO (14:30)
[2017-04-06] MEDS ORDERED: CALC600T12 PO (14:30)
[2017-04-06 14:33] VITALS: BP 122/74
[2017-04-07] MEDS ORDERED: HYDR-3816 PO (11:43)
== END 2017-04-06 14:54 | disposition home or self-care (01) ==
LOC: PREOP 14:10
PROVIDERS: ATTEND Surgery Pediatric Surgery
DX: Z01.818 Encounter for other preprocedural examination (principal); Z11.2 Encounter for screening for other bacterial diseases; C34.90 Malignant neoplasm of unspecified part of unspecified bronchus or lung; C25.9 Malignant neoplasm of pancreas, unspecified; C56.9 Malignant neoplasm of unspecified ovary
CPT/HCPCS: 87081

== ENCOUNTER 2017-04-07 07:55 | Day surgery (SDC) | payer BC ==
[~2017-04-07] VITALS: Ht 156.2 cm; Wt 83.3 kg
[~2017-04-07 07:55] MED LIST changes: +CALC600T12 PO; +IPRA3AMP IH; +MULT-35 PO; +POLY17PO6 PO
--- NOTE | 2017-04-07 08:26 | Progress Note-Pre Operative ---
Pre-Operative Progress Note H&P Reviewed The H&P was reviewed, patient examined and no changes noted. Date Seen by Provider: Apr 07, 2017 Time Seen by Provider: 08:20 Date H&P Reviewed: Apr 07, 2017 Time H&P Reviewed: 08:20 Pre-Operative Diagnosis: metastatic pancreatic cancer KELLY MASSEY MD Apr 07, 2017 08:26
[2017-04-07] MEDS ORDERED: HYDROcodone/APAP 5 MG/325 MG (LORTAB) TAB PO ONE (08:30)
[2017-04-07] MEDS ORDERED: ceFAZolin 1 GM/NS 50 ML IVPB IV ONE ×2 (08:30)
[2017-04-07] MEDS ORDERED: morphine INJ 10 MG/ML 1ML (SYR OR VIAL) IVP PRN ×2 (08:30→12:00)
[2017-04-07] MEDS ORDERED: ACETAMINOPHEN 325 MG TABLET/CAPLET (TYLENOL) PO PRN (08:30)
[2017-04-07] MEDS ORDERED: ONDANSETRON 4 MG/2 ML (SDV) Z0FRAN IVP PRN ×2 (08:30→12:00)
[2017-04-07] MEDS ORDERED: LACTATED RINGERS 1,000 ML IV PRN (08:32)
[2017-04-07] MEDS ORDERED: RT-ALBUTEROL SULF 2.5 MG/3 ML PRE-MIX VIAL INH ONE (08:45)
[2017-04-07] MEDS ORDERED: FAMOTIDINE 20MG/2ML IV (PEPCID) IV ONE (08:45)
[2017-04-07 08:48] VITALS: BP 138/81
[2017-04-07] MEDS ORDERED: proPOfol 200 MG/20 ML (DIPRIVAN) VIAL IV ONE (10:02)
[2017-04-07] MEDS ORDERED: MIDAZOLAM 2 MG/2 ML (VERSED) VIAL ONE (10:03)
[2017-04-07] MEDS ORDERED: fentaNYL INJECTION 250 MCG/5 ML AMP ONE (10:03)
[2017-04-07] MEDS ORDERED: LIDOCAINE PF 0.5% 50 ML (XYLOCAINE) VIAL ONE (10:08)
[2017-04-07] MEDS ORDERED: LIDOCAINE/EPI 1%-1:200,000 (XYLOCAINE) 30 ML VIAL ONE (10:11)
[2017-04-07] MEDS ORDERED: HEParin (CENTRAL IV FLUSH) 500 UNIT/5 ML SYR ONE (10:12)
--- NOTE | 2017-04-07 11:41 | Progress Note-Post Operative ---
Post-Operative Progess Note Surgeon (s)/Sales Training Manager (s) Surgeon KELLY MASSEY MD Sales Training Manager: NONE Pre-Operative Diagnosis metastatic pancreatic cancer Post-Operative Diagnosis same Procedure & Operative Findings Date of Procedure 04/07/17 Procedure Performed/Findings left subclavian groshong implantable catheter placement under flouroscopy. Anesthesia Type MAC with local Estimated Blood Loss Estimated blood loss (mL): minimal Specimens/Packing Specimens Removed none KELLY MASSEY MD Apr 07, 2017 11:41 am
[2017-04-07] MEDS ORDERED: HYDR-3816 PO (11:43)
--- NOTE | 2017-04-07 11:45 | Discharge Inst-Surgical ---
D/C Lap Instructions-KIDO New, Converted, or Re-Newed RX: RX on Chart Follow Up PRN Activity as tolerated may access and use port at anytime. Regular Diet Symptoms to Report: Fever over 101 degree F, Nausea/Vomiting Infection Signs and Symptoms to report: Increased redness, Foul odor of wound, Increased drainage Bathing instructions: May shower Operative Area Clean/Dry; Keep incision clean/dry If any problems/questions: Contact your physician or go to Emergency Room KELLY MASSEY MD Apr 07, 2017 11:45 am
--- NOTE | 2017-04-07 12:08 | Diagnostic Imaging Report ---
Portable upright radiograph of the chest. INDICATION: Left port placement. Metastatic disease. FINDINGS: There is a left infusion port placed with the tip at the upper SVC level. Extensive bilateral confluent nodules and infiltrates are seen similar to 02/10/2017. There is a suggestion of a small left pleural effusion. A tiny right effusion might be also present. The heart size is normal. The mediastinum and tessa appear unchanged. IMPRESSION: Extensive bilateral confluent nodules related to metastatic disease. Dictated by: Dictated on workstation # [id number]
[2017-04-07 12:10] VITALS: BP 121/71
[2017-04-07 12:40] VITALS: BP 122/73
[2017-04-07 13:10] VITALS: BP 124/70
[2017-04-07 13:20] VITALS: BP 124/70
--- NOTE | 2017-04-07 17:54 | Diagnostic Imaging Report ---
Are preserved the views of the chest Indication post placement by Dr. Gongora Fluoroscopy time utilized is 56 seconds The impression: Provided the image demonstrates a port catheter from which appears to terminate in the upper SVC level of the submitted image is limited due to breathing motion artifact. Correlate with followup chest radiograph Dictated by: Dictated on workstation # [id number]
--- NOTE | 2017-04-08 09:45 | OPERATIVE REPORT ---
DATE OF SERVICE: ATTENDING PRIMARY CARE PHYSICIAN: Dr. Shania Mcdonnell. PREOPERATIVE DIAGNOSIS: Metastatic pancreatic cancer. POSTOPERATIVE DIAGNOSIS: Metastatic pancreatic cancer. PROCEDURE: Placement of left subclavian Groshong implantable catheter under fluoroscopy. SURGEON: Kelly Massey MD ANESTHESIA: Monitored anesthesia care with local. ESTIMATED BLOOD LOSS: Minimal. FINDINGS: Catheter tip at superior vena cava - right atrial junction. DISPOSITION: The patient tolerated the procedure well. INDICATIONS: The patient is a 62-year-old female known to us. She has a history of morbid obesity and medical comorbidities including hypercholesterolemia, hypertension, and depression. She is status post Lap-Band placement on 05/09/2012. On 11/2016, she had a chest x-ray performed, which showed bilateral lung nodules. She then underwent a CT scan of the abdomen and chest as well as a needle biopsy of the lesion, which was found to be a moderately differentiated adenocarcinoma of the lung. This underwent numerous stainings and this was more consistent with a pancreatic primary with detection of a pancreatic mass as well as an ovarian mass. She was seen by oncology and they had decided on proceeding with chemotherapy and she will need a Groshong implantable catheter. DESCRIPTION OF PROCEDURE: The patient was brought to the operating room, laid supine on the table. After adequate IV pain and sedative medications and monitored anesthesia care, the chest and neck were prepped and draped in standard surgical fashion. Lidocaine 1% with epinephrine was then used to anesthetize the overlying skin in the left subclavian region. The left subclavian vein was then cannulated with drawing of venous blood. The guidewire was then inserted under fluoroscopy. The cannulated needle removed and a skin incision made using a 15 blade. The dilator and sheath were then placed over the guidewire. The dilator and the guidewire were then removed and the catheter was then placed under direct visualization through the sheath until the catheter tip was at the superior vena cava - right atrial junction. The sheath was then removed. The inner wire within the catheter was then removed. The catheter cut down the size from the port placed onto the catheter. The subcutaneous reservoir was then created by extending the skin incision laterally. The subcutaneous tissue was then dissected using blunt dissection as well as electrocautery overlying the anterior pectoralis fascia. The port was then placed into this reservoir and sutured to the fascia using interrupted 3-0 Vicryl sutures. The subcutaneous tissue was then reapproximated using 3-0 Vicryl interrupted sutures. Skin was closed using 4-0 Monocryl running subcuticular suture. The wound was then cleaned and covered with Dermabond. The patient tolerated the procedure well. We will get a post-procedure chest x-ray. Once placement is confirmed, the catheter may be accessed and used at any time. Job ID: [id number] DocumentID: [id number] Dictated Date: 04/07/2017 11:51:33 Shoe Turner Date: 04/07/2017 13:02:45 Dictated By: KELLY MASSEY MD
== END 2017-04-07 13:20 | disposition home or self-care (01) ==
LOC: SDC 07:55
PROVIDERS: ATTEND Surgery Pediatric Surgery
DX: C25.9 Malignant neoplasm of pancreas, unspecified (principal); C78.01 Secondary malignant neoplasm of right lung; C78.02 Secondary malignant neoplasm of left lung; C79.61 Secondary malignant neoplasm of right ovary; C79.62 Secondary malignant neoplasm of left ovary; I10 Essential (primary) hypertension; E78.00 Pure hypercholesterolemia, unspecified; D64.9 Anemia, unspecified; F32.9 Major depressive disorder, single episode, unspecified; K21.9 Gastro-esophageal reflux disease without esophagitis; E66.9 Obesity, unspecified; Z68.34 Body mass index [BMI] 34.0-34.9, adult; Z87.891 Personal history of nicotine dependence; Z98.84 Bariatric surgery status; Z79.899 Other long term (current) drug therapy
CPT/HCPCS: 71010; 94640

== ENCOUNTER 2017-05-17 09:42 | Outpatient (RCR) | payer BC ==
[2017-02-24 14:21] LABS: BASOPHILS # (AUTO) 0.1 10^3/uL (0.0-0.1); BASOPHILS % (AUTO) 1 % (0-10); EOSINOPHILS # (AUTO) 0.1 10^3/uL (0.0-0.3); EOSINOPHILS % (AUTO) 1 % (0-10); LYMPHOCYTES # (AUTO) 1.4 X 10^3 (1.0-4.0); LYMPHOCYTES % (AUTO) 14 % (12-44); MEAN CORPUSCULAR HEMOGLOBIN 29 PG (25-34); MEAN CORPUSCULAR HGB CONC 32 G/DL (32-36); MEAN CORPUSCULAR VOLUME 92 FL (80-99); MEAN PLATELET VOLUME 10.2 FL (7.4-10.4); MONOCYTES # (AUTO) 0.5 X 10^3 (0.0-1.0); MONOCYTES % (AUTO) 4 % (0-12); NEUTROPHILS # (AUTO) 8.3 X 10^3 (1.8-7.8); NEUTROPHILS % (AUTO) 80 % (42-75); PLATELET COUNT 327 10^3/uL (130-400); RED BLOOD COUNT 4.36 10^6/uL (4.35-5.85); RED CELL DISTRIBUTION WIDTH 14.6 % (10.0-14.5); WHITE BLOOD COUNT 10.4 10^3/uL (4.3-11.0)
[2017-02-24 15:35] LABS: ALANINE AMINOTRANSFERASE 6 U/L (0-55); ALBUMIN 3.6 G/DL (3.2-4.5); ANION GAP 6 MMOL/L (5-14); ASPARTATE AMINO TRANSFERASE 11 U/L (5-34); BILIRUBIN,TOTAL 0.4 MG/DL (0.1-1.0); BLOOD UREA NITROGEN 8 MG/DL (7-18); BUN/CREATININE RATIO 13; CALCIUM 9.2 MG/DL (8.5-10.1); CARBON DIOXIDE 28 MMOL/L (21-32); CHLORIDE 105 MMOL/L (98-107); CREATININE SERUM 0.63 MG/DL (0.60-1.30); GFR ESTIMATED > 60; GLUCOSE 95 MG/DL (70-105); SODIUM 139 MMOL/L (135-145); TOTAL PROTEIN 6.5 G/DL (6.4-8.2)
[2017-03-04 09:10] LABS: BILIRUBIN,URINE NEGATIVE (NEGATIVE); KETONES,URINE NEGATIVE (NEGATIVE); LEUKOCYTE ESTERASE ,URINE 1+ (NEGATIVE); NITRITE,URINE NEGATIVE (NEGATIVE); PH,URINE 7 (5-9); PROTEIN,URINE 2+ (NEGATIVE); UROBILINOGEN,URINE 1 MG/DL (NORMAL)
[2017-03-04 09:34] LABS: WBC,URINE 0-2 /HPF
[2017-04-12 09:48] LABS: BASOPHILS # (AUTO) 0.1 10^3/uL (0.0-0.1); BASOPHILS % (AUTO) 1 % (0-10); EOSINOPHILS # (AUTO) 0.2 10^3/uL (0.0-0.3); EOSINOPHILS % (AUTO) 2 % (0-10); LYMPHOCYTES # (AUTO) 0.8 X 10^3 (1.0-4.0); LYMPHOCYTES % (AUTO) 9 % (12-44); MEAN CORPUSCULAR HEMOGLOBIN 29 PG (25-34); MEAN CORPUSCULAR HGB CONC 32 G/DL (32-36); MEAN CORPUSCULAR VOLUME 91 FL (80-99); MEAN PLATELET VOLUME 10.3 FL (7.4-10.4); MONOCYTES # (AUTO) 0.5 X 10^3 (0.0-1.0); MONOCYTES % (AUTO) 5 % (0-12); NEUTROPHILS % (AUTO) 84 % (42-75); PLATELET COUNT 262 10^3/uL (130-400); RED BLOOD COUNT 4.05 10^6/uL (4.35-5.85); RED CELL DISTRIBUTION WIDTH 14.2 % (10.0-14.5); WHITE BLOOD COUNT 9.5 10^3/uL (4.3-11.0)
[2017-04-12 10:07] LABS: ALANINE AMINOTRANSFERASE 15 U/L (0-55); ALBUMIN 3.3 GM/DL (3.2-4.5); ANION GAP 8 MMOL/L (5-14); ASPARTATE AMINO TRANSFERASE 18 U/L (5-34); BILIRUBIN,TOTAL 0.4 MG/DL (0.1-1.0); BLOOD UREA NITROGEN 10 MG/DL (7-18); BUN/CREATININE RATIO 16 (0-20); CALCIUM 8.7 MG/DL (8.5-10.1); CARBON DIOXIDE 27 MMOL/L (21-32); CHLORIDE 105 MMOL/L (98-107); CREATININE SERUM 0.62 MG/DL (0.60-1.30); GFR ESTIMATED > 60; GLUCOSE 113 MG/DL (70-105); HEMOLYSIS 5 (-100-29); ICTERUS 0.4 (-100-1.9); LIPEMIA -1 (-100-49); POTASSIUM 3.6 MMOL/L (3.6-5.0); SODIUM 140 MMOL/L (135-145); TOTAL PROTEIN 6.5 GM/DL (6.4-8.2)
--- NOTE | 2017-04-12 12:02 | Diagnostic Imaging Report ---
EXAMINATION: Fluoroscopic-guided port check. INDICATION: Dysfunctional port that does not aspirate well. CONSENT: Informed consent was obtained from the patient. The risks, benefits, potential complications and alternatives were reviewed and all questions answered to the patient's satisfaction. CONTRAST: 5 mL of Isovue 300. FLUOROSCOPY TIME: 5 seconds FINDINGS: Voltage Tester image of the chest was obtained and demonstrates a left subclavian port with the tip at the upper SVC level. There is no fracture in the catheter. Extensive metastasis is seen. Upon injection of contrast under fluoroscopy, there is good flow through the Groshong-type tip of this catheter. At the time of the procedure the port aspirated without resistance. There is a loop noted in the port catheter within the subcutaneous tunnel. This is not seen on the standing chest radiograph and appears to relate to positional changes of the soft tissues. There is no evidence of leak or contrast extravasation in the soft tissues. IMPRESSION: 1. Patent Port-A-Cath. 2. There is a loop visualized within the catheter seen while the patient was in supine position in the subcutaneous tunnel. This is positional change of the appearance of the catheter compared to the standing emergency nurse radiograph which did not show that loop. Such positional change with possible partial kinking of the catheter could be responsible for the poor aspiration reported by history. Dictated by: Dictated on workstation # [id number]
[2017-04-19 09:14] LABS: BASOPHILS % (AUTO) 1 % (0-10); EOSINOPHILS # (AUTO) 0.1 10^3/uL (0.0-0.3); EOSINOPHILS % (AUTO) 1 % (0-10); LYMPHOCYTES # (AUTO) 0.8 X 10^3 (1.0-4.0); LYMPHOCYTES % (AUTO) 14 % (12-44); MEAN CORPUSCULAR HEMOGLOBIN 30 PG (25-34); MEAN CORPUSCULAR HGB CONC 33 G/DL (32-36); MEAN CORPUSCULAR VOLUME 90 FL (80-99); MEAN PLATELET VOLUME 9.6 FL (7.4-10.4); MONOCYTES # (AUTO) 0.4 X 10^3 (0.0-1.0); MONOCYTES % (AUTO) 7 % (0-12); NEUTROPHILS # (AUTO) 4.1 X 10^3 (1.8-7.8); NEUTROPHILS % (AUTO) 77 % (42-75); PLATELET COUNT 249 10^3/uL (130-400); RED BLOOD COUNT 3.93 10^6/uL (4.35-5.85); RED CELL DISTRIBUTION WIDTH 14.1 % (10.0-14.5); WHITE BLOOD COUNT 5.3 10^3/uL (4.3-11.0)
[2017-04-19 09:37] LABS: ANION GAP 9 MMOL/L (5-14); BLOOD UREA NITROGEN 8 MG/DL (7-18); BUN/CREATININE RATIO 14 (0-20); CALCIUM 8.3 MG/DL (8.5-10.1); CARBON DIOXIDE 25 MMOL/L (21-32); CHLORIDE 105 MMOL/L (98-107); CREATININE SERUM 0.57 MG/DL (0.60-1.30); GFR ESTIMATED > 60; GLUCOSE 118 MG/DL (70-105); HEMOLYSIS 3 (-100-29); ICTERUS 0.5 (-100-1.9); LIPEMIA -2 (-100-49); POTASSIUM 3.7 MMOL/L (3.6-5.0); SODIUM 139 MMOL/L (135-145)
[2017-04-27 09:56] LABS: BASOPHILS % (AUTO) 0 % (0-10); EOSINOPHILS # (AUTO) 0.1 10^3/uL (0.0-0.3); EOSINOPHILS % (AUTO) 2 % (0-10); LYMPHOCYTES # (AUTO) 0.8 X 10^3 (1.0-4.0); LYMPHOCYTES % (AUTO) 12 % (12-44); MEAN CORPUSCULAR HEMOGLOBIN 29 PG (25-34); MEAN CORPUSCULAR HGB CONC 32 G/DL (32-36); MEAN CORPUSCULAR VOLUME 91 FL (80-99); MEAN PLATELET VOLUME 9.4 FL (7.4-10.4); MONOCYTES # (AUTO) 0.5 X 10^3 (0.0-1.0); MONOCYTES % (AUTO) 7 % (0-12); NEUTROPHILS # (AUTO) 5.4 X 10^3 (1.8-7.8); NEUTROPHILS % (AUTO) 79 % (42-75); PLATELET COUNT 168 10^3/uL (130-400); RED BLOOD COUNT 3.64 10^6/uL (4.35-5.85); RED CELL DISTRIBUTION WIDTH 14.3 % (10.0-14.5); WHITE BLOOD COUNT 6.9 10^3/uL (4.3-11.0)
[2017-04-27 10:43] LABS: ANION GAP 7 MMOL/L (5-14); BLOOD UREA NITROGEN 10 MG/DL (7-18); BUN/CREATININE RATIO 15; CALCIUM 8.5 MG/DL (8.5-10.1); CARBON DIOXIDE 27 MMOL/L (21-32); CHLORIDE 104 MMOL/L (98-107); CREATININE SERUM 0.65 MG/DL (0.60-1.30); GFR ESTIMATED > 60; GLUCOSE 108 MG/DL (70-105); POTASSIUM 3.6 MMOL/L (3.6-5.0); SODIUM 138 MMOL/L (135-145)
[2017-05-03 09:22] LABS: BASOPHILS # (AUTO) 0.1 10^3/uL (0.0-0.1); BASOPHILS % (AUTO) 2 % (0-10); EOSINOPHILS % (AUTO) 2 % (0-10); LYMPHOCYTES % (AUTO) 41 % (12-44); MEAN CORPUSCULAR HEMOGLOBIN 29 PG (25-34); MEAN CORPUSCULAR HGB CONC 32 G/DL (32-36); MEAN CORPUSCULAR VOLUME 91 FL (80-99); MONOCYTES # (AUTO) 0.2 X 10^3 (0.0-1.0); MONOCYTES % (AUTO) 7 % (0-12); NEUTROPHILS # (AUTO) 1.1 X 10^3 (1.8-7.8); NEUTROPHILS % (AUTO) 49 % (42-75); PLATELET COUNT 348 10^3/uL (130-400); RED CELL DISTRIBUTION WIDTH 14.7 % (10.0-14.5); WHITE BLOOD COUNT 2.4 10^3/uL (4.3-11.0)
[2017-05-03 09:55] LABS: ANION GAP 6 MMOL/L (5-14); BLOOD UREA NITROGEN 8 MG/DL (7-18); BUN/CREATININE RATIO 14; CALCIUM 8.5 MG/DL (8.5-10.1); CARBON DIOXIDE 29 MMOL/L (21-32); CHLORIDE 104 MMOL/L (98-107); CREATININE SERUM 0.59 MG/DL (0.60-1.30); GFR ESTIMATED > 60; GLUCOSE 95 MG/DL (70-105); POTASSIUM 3.7 MMOL/L (3.6-5.0); SODIUM 139 MMOL/L (135-145)
[2017-05-10 09:50] LABS: BASOPHILS # (AUTO) 0.1 10^3/uL (0.0-0.1); BASOPHILS % (AUTO) 1 % (0-10); EOSINOPHILS # (AUTO) 0.3 10^3/uL (0.0-0.3); EOSINOPHILS % (AUTO) 3 % (0-10); LYMPHOCYTES # (AUTO) 1.1 X 10^3 (1.0-4.0); LYMPHOCYTES % (AUTO) 12 % (12-44); MEAN CORPUSCULAR HEMOGLOBIN 29 PG (25-34); MEAN CORPUSCULAR HGB CONC 32 G/DL (32-36); MEAN CORPUSCULAR VOLUME 93 FL (80-99); MEAN PLATELET VOLUME 9.7 FL (7.4-10.4); MONOCYTES # (AUTO) 0.8 X 10^3 (0.0-1.0); MONOCYTES % (AUTO) 9 % (0-12); NEUTROPHILS # (AUTO) 7.1 X 10^3 (1.8-7.8); NEUTROPHILS % (AUTO) 75 % (42-75); PLATELET COUNT 322 10^3/uL (130-400); RED BLOOD COUNT 3.81 10^6/uL (4.35-5.85); RED CELL DISTRIBUTION WIDTH 16.3 % (10.0-14.5); WHITE BLOOD COUNT 9.4 10^3/uL (4.3-11.0)
[2017-05-10 10:18] LABS: ALANINE AMINOTRANSFERASE 17 U/L (0-55); ALBUMIN 3.1 GM/DL (3.2-4.5); ANION GAP 8 MMOL/L (5-14); ASPARTATE AMINO TRANSFERASE 17 U/L (5-34); BILIRUBIN,TOTAL 0.3 MG/DL (0.1-1.0); BLOOD UREA NITROGEN 13 MG/DL (7-18); BUN/CREATININE RATIO 20; CALCIUM 8.6 MG/DL (8.5-10.1); CARBON DIOXIDE 26 MMOL/L (21-32); CHLORIDE 105 MMOL/L (98-107); CREATININE SERUM 0.65 MG/DL (0.60-1.30); GFR ESTIMATED > 60; GLUCOSE 115 MG/DL (70-105); MAGNESIUM 1.7 MG/DL (1.8-2.4); POTASSIUM 4.4 MMOL/L (3.6-5.0); SODIUM 139 MMOL/L (135-145)
[~2017-05-17] VITALS: Ht 154.3 cm; Wt 84.8 kg
[~2017-05-17 09:42] MED LIST changes: +ALTEPLASE 2 MG (CATHFLO) CANCER CENTER IV ONE; -CALC-694 PO; +CATHETER FLUSH 10 ML SYR IVP PRN; -CITA40TA11 PO; -FURO40TA4 PO; +GEMCITABINE HCL (GENERIC) 1,000 MG, GEMCITABINE HCL (GENERIC) 500 MG in NS (IVPB) CANCE... IV SCH; +HYDROcodone/APAP 5 MG/325 MG (LORTAB) CANCER CTR ONE; +IOHEXOL 300 MG/ML 30 ML (OMNIPAQUE 300) VIAL IV ONE; -METR250T PO; -MORP-33 PO; -NITR-65 PO; +NS IV 1000 ML (CANCER CTR) IV SCH; -ONDA8TAB9 PO; +PACLitaxel PROTEIN 170 MG in EMPTY IV BAG (PVC) CANCER CTR 1 EA IV SCH; +PALONOSETRON 0.25 MG, DEXAMETHASONE 10 MG/NS 50 ML IVPB IV PRN; -PANT40TA3 PO; -PHEN-640 PO
[2017-05-17 10:07] LABS: BASOPHILS # (AUTO) 0.1 10^3/uL (0.0-0.1); BASOPHILS % (AUTO) 2 % (0-10); EOSINOPHILS % (AUTO) 1 % (0-10); LYMPHOCYTES # (AUTO) 0.8 X 10^3 (1.0-4.0); LYMPHOCYTES % (AUTO) 16 % (12-44); MEAN CORPUSCULAR HEMOGLOBIN 29 PG (25-34); MEAN CORPUSCULAR HGB CONC 32 G/DL (32-36); MEAN CORPUSCULAR VOLUME 92 FL (80-99); MONOCYTES # (AUTO) 0.4 X 10^3 (0.0-1.0); MONOCYTES % (AUTO) 9 % (0-12); NEUTROPHILS # (AUTO) 3.4 X 10^3 (1.8-7.8); NEUTROPHILS % (AUTO) 72 % (42-75); PLATELET COUNT 328 10^3/uL (130-400); RED BLOOD COUNT 3.38 10^6/uL (4.35-5.85); WHITE BLOOD COUNT 4.6 10^3/uL (4.3-11.0)
[2017-05-17 10:28] LABS: ANION GAP 11 MMOL/L (5-14); BLOOD UREA NITROGEN 7 MG/DL (7-18); BUN/CREATININE RATIO 10; CALCIUM 8.3 MG/DL (8.5-10.1); CARBON DIOXIDE 26 MMOL/L (21-32); CHLORIDE 101 MMOL/L (98-107); CREATININE SERUM 0.69 MG/DL (0.60-1.30); GFR ESTIMATED > 60; GLUCOSE 110 MG/DL (70-105); POTASSIUM 3.7 MMOL/L (3.6-5.0); SODIUM 138 MMOL/L (135-145)
--- NOTE | 2017-05-17 11:28 | Diagnostic Imaging Report ---
INDICATION: Edema. TECHNIQUE: Multiple real-time grayscale images were obtained of lower extremities in various projections bilaterally. Duplex Doppler and color Doppler images were also obtained. FINDINGS: The common femoral, femoral and popliteal veins demonstrate normal response to compression, augmentation and Valsalva. There are no abnormal lower extremity fluid collections or masses. IMPRESSION: No evidence of deep venous thrombosis in either lower extremity. Dictated by: Dictated on workstation # [id number]
== END 2017-05-23 | disposition home or self-care (01) ==
LOC: ONC 09:42
PROVIDERS: ATTEND Internal Medicine Hematology & Oncology
DX: Z51.11 Encounter for antineoplastic chemotherapy (principal); C34.32 Malignant neoplasm of lower lobe, left bronchus or lung; I10 Essential (primary) hypertension; Z98.84 Bariatric surgery status; Z87.891 Personal history of nicotine dependence; Z80.3 Family history of malignant neoplasm of breast; R82.99 Other abnormal findings in urine; T85.698A Other mechanical complication of other specified internal prosthetic devices, implants and grafts, initial encounter; Z95.828 Presence of other vascular implants and grafts
CPT/HCPCS: 36415; 36591; 36593; 36598; 80048; 80053; 81000; 82378; 83735; 85025; 86301; 86304; 87088; 88341; 88342; 93970; 96375; 96413; 96417; 99213

== ENCOUNTER → 2017-05-17 | Outpatient (CLI) | payer BC ==
[~2017-05-17] MED LIST changes: +CALC-694 PO; +CITA40TA11 PO; +FURO40TA4 PO; +HYDR-3816 PO; +METR250T PO; +MORP-33 PO; +NITR-65 PO; +ONDA8TAB9 PO; +PANT40TA3 PO; +PHEN-640 PO
== END ==
LOC: RAD 10:13
PROVIDERS: ATTEND Nurse Practitioner Adult Health
DX: R60.9 Edema, unspecified (principal)

== ENCOUNTER → 2017-06-10 | Outpatient (CLI) | payer BC ==
[~2017-06-10] MED LIST changes: -ALTEPLASE 2 MG (CATHFLO) CANCER CENTER IV ONE; +BARIUM SUSPENSION 2.1% (VANILLA SILQ) 450 ML PO ONE; +CALC-694 PO; +CATHETER FLUSH 10 ML SYR IV PRN; -CATHETER FLUSH 10 ML SYR IVP PRN; +CITA40TA11 PO; +FURO40TA4 PO; -GEMCITABINE HCL (GENERIC) 1,000 MG, GEMCITABINE HCL (GENERIC) 500 MG in NS (IVPB) CANCE... IV SCH; -HYDROcodone/APAP 5 MG/325 MG (LORTAB) CANCER CTR ONE; -IOHEXOL 300 MG/ML 30 ML (OMNIPAQUE 300) VIAL IV ONE; +IOHEXOL 350 MG/ML 100 ML (OMNIPAQUE 350) VIAL IV ONE; +METR250T PO; +MORP-33 PO; +NITR-65 PO; +NS 100 ML (IVPB) BAG IV ONE; -NS IV 1000 ML (CANCER CTR) IV SCH; +ONDA8TAB9 PO; -PACLitaxel PROTEIN 170 MG in EMPTY IV BAG (PVC) CANCER CTR 1 EA IV SCH; -PALONOSETRON 0.25 MG, DEXAMETHASONE 10 MG/NS 50 ML IVPB IV PRN; +PANT40TA3 PO; +PHEN-640 PO
[2017-06-10] MEDS: CATHETER FLUSH 10 ML SYR IV PRN ×2 (09:50→10:24)
--- NOTE | 2017-06-10 16:23 | Diagnostic Imaging Report ---
PROCEDURE: CT abdomen and pelvis with and without contrast. TECHNIQUE: Precontrast acquisitions were acquired through the abdomen and pelvis. Multiple contiguous axial images were obtained through the abdomen and pelvis after the administration of intravenous contrast. INDICATION: Pancreatic cancer. COMPARISON: The exam compared to 02/24/2017. FINDINGS: Confluent zones of soft tissue consolidation in the visualized portions of both lung bases showed no significant change from the previous study. There has been the development of moderately extensive intrahepatic and mild extrahepatic biliary ductal dilatation. No identifiable mass at the level of the pancreatic head. The body and tail of the pancreas revealed ductal dilatation and parenchymal atrophy. Hypodense soft tissue fullness at its proximal body is less conspicuous than on prior. No discrete liver mass. The spleen is negative. There is no abnormal adrenal uptake. There has been the development of mild right hydroureteronephrosis. A very large complex mixed cystic solid pelvic mass extends cephalad to the level above the renal tessa and measures 26 cm cephalocaudal with maximal axial dimensions 26 cm x 16 cm. While it is largely cystic, its caudal aspect shows extensive nodular soft tissue-enhancing component. The appearance is very suspicious for malignancy such as ovarian cancer. It previously measured axial dimensions 15.4 x 12.7 cm and had a cephalocaudal height of 14 cm. Its growth likely accounts for the new right hydroureteronephrosis. There is trace pelvic free fluid isolated to the cul-de-sac. No other ascites. There is no bowel obstruction. There is no destructive osseous lesion. IMPRESSION: 1. Massive mixed cystic solid pelvic mass shows substantial increase in size from prior and its features strongly suggestive of ovarian malignancy. 2. Irregular appearance, hypodensity, and fullness at the level of the pancreatic body is much less conspicuous than on prior however distal atrophy and ductal dilatation has increased and there is new intrahepatic and extrahepatic bile duct dilatation. No demonstrated liver mass. 3. New right hydroureteronephrosis, mild in severity and likely owing to obstruction by the pelvic mass. 4. Mass-like zones of soft tissue consolidation extensively involve the partially visualized lower lobes, unchanged from prior. Dictated by: Dictated on workstation # [id number]
--- NOTE | 2017-06-10 18:03 | Diagnostic Imaging Report ---
INDICATION: Pancreatic cancer. EXAMINATION: Whole body bone scan. 26.1 mCi of technetium 99m MDP was given intravenously. Whole body bone scan was obtained after appropriate delay. FINDINGS: There appears to be hydronephrosis of the right kidney with columning of contrast in the right ureter. There is excretion of activity from both kidneys. There is homogeneous uptake of isotope throughout the skeletal system with no photopenic or focal areas of increased uptake. IMPRESSION: Suspect obstructive uropathy with right renal collecting system. There is no evidence for bone metastases. Dictated by: Dictated on workstation # [id number]
== END ==
LOC: CARD 09:33
PROVIDERS: ATTEND Nurse Practitioner Adult Health
DX: C25.1 Malignant neoplasm of body of pancreas (principal); C78.02 Secondary malignant neoplasm of left lung
CPT/HCPCS: 74178; 78306

== ENCOUNTER 2017-06-17 11:48 | Outpatient (CLI) | payer BC ==
[~2017-06-17] VITALS: Ht 156.2 cm; Wt 92.8 kg
[~2017-06-17 11:48] MED LIST changes: -BARIUM SUSPENSION 2.1% (VANILLA SILQ) 450 ML PO ONE; -CALC-694 PO; -CATHETER FLUSH 10 ML SYR IV PRN; -CITA40TA11 PO; -FURO40TA4 PO; -IOHEXOL 350 MG/ML 100 ML (OMNIPAQUE 350) VIAL IV ONE; -METR250T PO; -MORP-33 PO; -NITR-65 PO; -NS 100 ML (IVPB) BAG IV ONE; -ONDA8TAB9 PO; -PANT40TA3 PO; -PHEN-640 PO
[2017-06-17] MEDS ORDERED: METR250T PO (12:11)
[2017-06-17] MEDS ORDERED: FURO40TA4 PO (12:11)
[2017-06-17] MEDS ORDERED: MORP-33 PO (12:11)
== END 2017-06-17 12:18 ==
LOC: PREOP 11:48
PROVIDERS: ATTEND Urology
DX: Z01.818 Encounter for other preprocedural examination (principal); N20.1 Calculus of ureter

== ENCOUNTER 2017-06-20 08:30 | Day surgery (SDC) | payer BC ==
[~2017-06-20] VITALS: Ht 156.2 cm; Wt 92.8 kg
--- NOTE | 2017-06-20 07:09 | Progress Note-Pre Operative ---
Pre-Operative Progress Note H&P Reviewed The H&P was reviewed, patient examined and no changes noted. Date Seen by Provider: Jun 20, 2017 Time Seen by Provider: 07:09 Date H&P Reviewed: Jun 20, 2017 Time H&P Reviewed: 07:09 Pre-Operative Diagnosis: RT URETERAL OBSTRUCTION SAMIR GOMEZ MD Jun 20, 2017 7:09 am
[~2017-06-20 08:30] MED LIST changes: +FURO40TA4 PO; +METR250T PO; +MORP-33 PO
[2017-06-20] MEDS ORDERED: cefTRIAXone 1 GM/NS 50 ML IVPB IV ONE ×2 (09:00)
[2017-06-20] MEDS ORDERED: FAMOTIDINE 20MG/2ML IV (PEPCID) ONE (09:04)
[2017-06-20] MEDS ORDERED: MIDAZOLAM 2 MG/2 ML (VERSED) VIAL ONE (09:07)
[2017-06-20] MEDS ORDERED: fentaNYL INJECTION 100 MCG/2 ML AMP ONE (09:08)
[2017-06-20] MEDS ORDERED: SEVOFLURANE (ULTANE) 15 ML INHAL SOLN ONE (09:08)
[2017-06-20] MEDS ORDERED: ONDANSETRON 4 MG/2 ML (SDV) Z0FRAN ONE (09:08)
[2017-06-20] MEDS ORDERED: DEXAMETHASONE 10 MG/ML (DECADRON) 1 ML VIAL ONE (09:08)
[2017-06-20] MEDS ORDERED: LIDOCAINE PF 2% 5 ML (XYLOCAINE) VIAL ONE (09:08)
[2017-06-20] MEDS ORDERED: proPOfol 200 MG/20 ML (DIPRIVAN) VIAL IV ONE (09:08)
[2017-06-20] MEDS ORDERED: LACTATED RINGERS 1,000 ML IV PRN (09:11)
[2017-06-20] MEDS ORDERED: FAMOTIDINE 20MG/2ML IV (PEPCID) IV ONE (09:15)
[2017-06-20] MEDS ORDERED: PHENYLEPHRINE 100 MCG/ML 10 ML (ANESTHESIA) SYR ONE (09:43)
--- NOTE | 2017-06-20 09:59 | Progress Note-Post Operative ---
Post-Operative Progess Note Surgeon (s)/Asphalt Roller Operator (s) Surgeon SAMIR GOMEZ MD Asphalt Roller Operator: N/A Pre-Operative Diagnosis RT URETERAL OBSTRUCTION Post-Operative Diagnosis SAME Procedure & Operative Findings Date of Procedure 06/20/17 Procedure Performed/Findings CYSTO, RT RETROGRADE UROGRAM AND JJ STENT Anesthesia Type GENERAL Estimated Blood Loss Estimated blood loss (mL): NONE Specimens/Packing Specimens Removed NONE Packing: NONE SAMIR GOMEZ MD Jun 20, 2017 9:59 am
--- NOTE | 2017-06-20 10:00 | Discharge Inst-Urology ---
Discharge Inst-Urology Discharge Medications New, Converted, or Re-newed RX: RX on Chart Patient Instructions/Follow Up Plan Please make appointment to been seen in office in 4 weeks. Increase oral fluids for 48 hours and then as needed. Diet and Activity as tolerated. If questions or concerns contact your physician Or seek help at emergency department. SAMIR GOMEZ MD Jun 20, 2017 10:00 am
[2017-06-20 10:45] VITALS: BP 115/74
[2017-06-20 11:15] VITALS: BP 115/74
[2017-06-20] MEDS ORDERED: NITR-65 PO (12:02)
[2017-06-20] MEDS ORDERED: PHEN-640 PO (12:02)
[2017-06-20 12:15] VITALS: BP 115/74
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
--- OUTSIDE RECORDS SUMMARY | 2017-06-20 12:52 | XMS REPORT | Encounter Summary ---
Author Author [facility] Organization [facility] Address Unknown Phone Unavailable Care Team Providers Care Pit Laborer Name Role Phone PCP Unavailable Encounter Details Date Type Department Care Team Description 03/24/2017 Ancillary Rad Outpatient, Radiologist Diagnosis unknown Orders [address] (Primary Dx) [place] [address] Social History Tobacco Use Types Packs/Day Years Used Date Never Assessed Sex Assigned at Date Recorded Not on file as of this encounter Plan of Treatment Not on fileas of this encounter Results * NM PET/CT EXTERNAL IMAGING (03/01/2017) Narrative This order has been auto finalized and does not contain a result. * CT CHEST/ABD/PEL EXTERNAL IMAGING (02/24/2017) Narrative This order has been auto finalized and does not contain a result. * CT CHEST EXTERNAL IMAGING (01/14/2017) Narrative This order has been auto finalized and does not contain a result. in this encounter Visit Diagnoses Diagnosis Diagnosis unknown - Primary Other unknown and unspecified cause of morbidity or mortality in this encounter
--- OUTSIDE RECORDS SUMMARY | 2017-06-20 12:52 | XMS REPORT | Encounter Summary ---
Author Author [facility] Organization [facility] Address Unknown Phone Unavailable Care Team Providers Care Central Office Worker Name Role Phone PCP Unavailable Reason for Visit * Reason Comments Heme/Onc Care New Patient * Consult, Test & Treat (Routine) Status Reason Specialty Diagnoses / Referred By Referred To Procedures Contact Contact No Auth Needed Obstetrics & Diagnoses Diego Diaz Chapman, Julia A, Gynecology / Neoplasm of DO Oncology unspecified [address] behavior of GORGE B [address] [place], [place] genitourinary [id number] organ Phone: Phone: Pelvic mass/elev [phone] CA125, Fax: [facility]/ [phone] PPODiego, PJTeddy, BERENICE P rocedures [place] OFFICE CONSULTATION,MIRANDA Bo MD-NEW PATIENT Encounter Details Date Type Department Care Team Description 2017 Office Visit [facility] Brianda Tran MD Ovarian mass (Primary Dx) [facility] [address] [place] [address] [place] [address] [phone] Social History Tobacco Use Types Packs/Day Years Used Date Former Smoker Cigarettes 1 15 Quit: 2003 Alcohol Use Drinks/Week oz/Week Comments No Sex Assigned at Date Recorded Not on file as of this encounter Last Filed Vital Signs Vital Sign Reading [...] Mass Index 34.84 2017 9:39 AM CDT in this encounter Instructions * Patient Instructions - Carlie Torres APRN - 2017 10:57 AM CDT 1) Be sure to maintain your bowel regimen with medications such as Miralax. 2) Continue with treatment as planned by Dr. Bailey. May reassess in the future following treatment if abdominal mass becomes symptomatic and your respiratory function can support a surgery. in this encounter Progress Notes * Brianda Tran MD - 2017 10:07 AM CDT Formatting of this note may be different from the original. Date of Service: 2017 Subjective: Reason for Visit: Heme/Onc Care and New Patient Klarissa Luis is a 62 y.o. female. No matching staging information was found for the patient. 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 In his note she reports feeling [...] Pathology: 1. [facility] case number: [id number]. Obtained Via [facility] [place] outpatient on 03/23/2017. Uterus, endometrial biopsybenign endometrial polyp. 2. Phan Boticca March 15, 2017. Pancreatic body mass, fine- needle aspirate: Moderately differentiated adenocarcinoma. Pancreatic body mass , fine-needle aspirate, ThinPrep smear and cell block: [...] [facility] 02/10/2017 lung, left, CT-guided needle biopsymoderately differentiated adenocarcinoma favor enteric type adenocarcinoma the lung. Positive with CK 7 they also expressed CD asked to, napsa and TTF1 an enteric type adenocarcinoma the lung would be favored, however a metastasis from the upper GI tract cannot be entirely excluded. Molecular testing for EGFR, ALK, ROS 1 and PDL 1 were ordered. PDL 1 was less than 1% ROS 1 and ALK were both negative EGFR was also negative 4. CEA 2.0, CA 199 8, CA 125 177.1 5. Pulmonary function [...] by endoscopic ultrasound with FNA and biopsy February. Esophagus was normal stomach normal except for [...] cancer; 5. Pancreatic cancer PSH: 1. Carpal tunnel 2. Gastric band 3. Cholecystectomy 4. section 5. 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 2. Menarche: 12 3. LMP/menopausal: 49 years old 4. OCP/ERT/HRT: OCP's 6 years 5. control-current: Not applicable 6. STDs: Not applicable not applicable 7. Sexually active: Not applicable 8. Fibroids/endometriosis: No 9. If premenopausal, menstrual pattern, normal: Not applicable 10. [facility] SH: 1. Smoke: Former smoker under 1 pack per day for 30 years quit 20 years ago 2. Drugs: None 3. ETOH: None 4. 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 5. Marital status: 6. Last colonoscopy: 03/15/2017 7. Last Mammogram: August 2016 FH: 1. Cancer: Mother had breast cancer in her late 50s. Patient is scheduled to start treatment next week, for metastatic pancreatic cancer. Port a cath scheduled to be placed tomorrow. MRI of the brain not done. Above film from her CT dated 02/24/2017. Review of Systems Constitutional: Positive for appetite change and fatigue. Negative for fever and unexpected weight change. HENT: Positive for congestion and rhinorrhea. Negative for mouth sores, tinnitus and voice change. Eyes: Negative for visual disturbance. Respiratory: Positive for cough, shortness of breath and wheezing. Cardiovascular: Negative for chest pain, palpitations and leg swelling. Gastrointestinal: Positive for abdominal pain and abdominal distention. Negative for nausea, vomiting, diarrhea and constipation. Genitourinary: Positive for vaginal bleeding (2 episodes x 4 days light. over the past 2 months.). Negative for dysuria, urgency, frequency, hematuria, vaginal discharge, vaginal pain and pelvic pain. Musculoskeletal: Negative for myalgias, back pain and arthralgias. Skin: Negative for color change and rash. Neurological: Negative for dizziness, seizures, syncope, weakness, numbness and headaches. Psychiatric/Behavioral: Negative for dysphoric mood. The patient is not nervous/ anxious. Objective: CALCIUM PO Take by mouth. CITALOPRAM HYDROBROMIDE (CELEXA PO) Take by mouth. DOCOSAHEXANOIC ACID/EPA (FISH OIL PO) Take by mouth. DOCUSATE CALCIUM (STOOL SOFTENER PO) Take by mouth. FERROUS SULFATE (IRON PO) Take by mouth. LISINOPRIL PO Take by mouth. vitamins, multiple cap Take 1 Cap by mouth daily. Filed Vitals: 04/04/17 0939 BP: 152/88 Pulse: 91 Temp: 36.9 C (98.4 F) Height: 154.9 cm (61") Weight: 83.643 kg (184 lb 6.4 oz) SpO2: 94% Body mass index is 34.86 kg/(m^2). Pain Score: Five (BACK PAIN) Pain Loc: Abdomen Pain Addressed: N/A Patient Evaluated for a Clinical Trial: Patient not eligible for a treatment trial (including not needing treatment, needs palliative care, in remission). Eastern Cooperative Oncology Group performance status is 1, Restricted in physically strenuous activity but ambulatory and able to carry out work of a light or sedentary nature, e.g., light house work, office work. Physical Exam Constitutional: She is oriented to person, place, and time. She appears well- developed and well-nourished. HENT: Head: Normocephalic and atraumatic. Mouth/Throat: Oropharynx is clear and moist and mucous membranes are normal. Eyes: Conjunctivae and EOM are normal. Pupils are equal, round, and reactive to light. Neck: Normal range of motion. Neck supple. No thyromegaly present. Cardiovascular: Normal rate, regular rhythm, normal heart sounds, intact distal pulses and normal pulses. No murmur heard. Pulmonary/Chest: Tachypnea noted. She has wheezes. Abdominal: Soft. Bowel sounds are normal. She exhibits mass. She exhibits no distension and no ascites. There is no hepatosplenomegaly. There is no tenderness. Genitourinary: Rectum normal. Rectal exam shows no mass. There is no lesion on the right labia. There is no lesion on the left labia. Uterus is not enlarged and not tender. Cervix exhibits no motion tenderness, no discharge and no friability. Right adnexum displays no mass, no tenderness and no fullness. Left adnexum displays no mass, no tenderness and no fullness. No vaginal discharge found. Uterus pushed downward by the mass-which is on top. No cul-de-sac disease. Lymphadenopathy: She has no cervical adenopathy. Right: No inguinal adenopathy present. Left: No inguinal adenopathy present. Neurological: She is alert and oriented to person, place, and time. No cranial nerve deficit. Coordination and gait normal. Skin: Skin is warm and dry. No rash noted. Psychiatric: She has a normal mood and affect. Vitals reviewed. Assessment and Plan: Patient Active Problem List Diagnosis Date Noted Ovarian mass 04/03/2017 I suspect that the mass is most likely related to her suspected primary pancreatic malignancy. The issue is whether or not this is 1 cancer or 2. We know that she has a primary pancreatic to the lung. Mucinous tumors are unlikely to be primary ovarian and she has both a mucin GI- type tumor arising from the pancreas and the lungs which most likely is related. Therefore, I suspect, that the mass is also related to the pancreas- I would be surprised that she would have 2 separate primaries. I do not feel that a biopsy is required to begin therapy and I would treat her as you suspect, a primary pancreatic cancer. Based upon her response to chemotherapy it is certainly possible that removal of the adnexal mass could be considered in the future but at this time I would proceed with primary chemotherapy. Overall the patient understands that removal of the mass does not improve her overall survival as her survival is dictated by what appears to be a metastatic pancreatic malignancy. In addition, she is asymptomatic, and the only reason to remove the mass at this time would be if it would improve her quality of life which at this point it does not. I would be more than happy to see her in the future, if needed. I spent 60 minutes involved in the care of the patient, which included review of films, records, discussion as well as counseling. It is a pleasure being involved in her care. If you have any questions, please call. Brianda Tran MD Drum Sander Setter Gynecology Oncology Department of Obstetrics/Gynecology in this encounter Plan of Treatment Not on fileas of this encounter Visit Diagnoses Diagnosis Ovarian mass - Primary Unspecified noninflammatory disorder of ovary, fallopian tube, and broad ligament in this encounter
--- OUTSIDE RECORDS SUMMARY | 2017-06-20 12:52 | XMS REPORT | Encounter Summary ---
Author Author [facility] Organization [facility] Address Unknown Phone Unavailable Care Team Providers Care Extrusion Process Operator Name Role Phone PCP Unavailable Encounter Details Date Type Department Care Team Description 03/25/2017 Ancillary Rad Outpatient, Radiologist Diagnosis unknown Orders [address] (Primary Dx) [place] [address] Social History Tobacco Use Types Packs/Day Years Used Date Never Assessed Sex Assigned at Date Recorded Not on file as of this encounter Plan of Treatment Not on fileas of this encounter Results * US PELVIS EXTERNAL IMAGING (03/08/2017) Narrative This order has been auto finalized and does not contain a result. in this encounter Visit Diagnoses Diagnosis Diagnosis unknown - Primary Other unknown and unspecified cause of morbidity or mortality in this encounter
--- OUTSIDE RECORDS SUMMARY | 2017-06-20 12:52 | XMS REPORT | Encounter Summary ---
Author Author [facility] Organization [facility] Address Unknown Phone Unavailable Care Team Providers Care Landscape Crew Leader Name Role Phone PCP Unavailable Reason for Visit * Reason Comments Navigation Assessment Encounter Details Date Type Department Care Team Description 03/31/2017 Telephone [facility] Brianda Tran MD Navigation Assessment [facility] [address] [place] [address] [place] [address] [phone] Social History Tobacco Use Types Packs/Day Years Used Date Never Assessed Sex Assigned at Date Recorded Not on file as of this encounter Plan of Treatment Not on fileas of this encounter Visit Diagnoses Not on filein this encounter
--- NOTE | 2017-07-03 00:05 | OPERATIVE REPORT ---
DATE OF SERVICE: 06/20/2017 PREOPERATIVE DIAGNOSIS: Right urethral obstruction. POSTOPERATIVE DIAGNOSIS: Right urethral obstruction. OPERATION PERFORMED: Cystoscopy, right retrograde urogram and insertion of right double J stent. SURGEON: Júnior Gomez MD. ANESTHESIA: General. COMPLICATIONS: None. PROCEDURE IN DETAIL: Under satisfactory general anesthesia, the patient in the lithotomy position, genitalia were prepped and draped in the usual sterile fashion. Cystoscope was introduced in the bladder. Bladder distention was normal. The ureteric orifices were identified. I went ahead and passed a urethral catheter in the right urethral orifice and injected contrast to delineate the course of the ureter. I removed that and I inserted a 6-Spanish 24 cm double J stent guided fluoroscopically all the way to the right renal pelvis. The guidewire was removed and the stent was seen nicely, proximally, fluoroscopically and distally endoscopically. The bladder was evacuated and the cystoscope was removed. The patient tolerated the procedure and anesthesia well, was sent to recovery room in stable condition. Job ID: [id number] DocumentID: [id number] Dictated Date: 07/01/2017 12:56:44 Beveling Machine Operator Date: 07/02/2017 04:02:07 Dictated By: JÚNIOR GOMEZ MD
== END 2017-06-20 12:45 | disposition home or self-care (01) ==
LOC: SDC 08:30
PROVIDERS: ATTEND Urology
DX: N13.5 Crossing vessel and stricture of ureter without hydronephrosis (principal); C25.9 Malignant neoplasm of pancreas, unspecified; F32.9 Major depressive disorder, single episode, unspecified; I10 Essential (primary) hypertension; G62.9 Polyneuropathy, unspecified; Z85.118 Personal history of other malignant neoplasm of bronchus and lung; Z87.891 Personal history of nicotine dependence; Z79.899 Other long term (current) drug therapy
CPT/HCPCS: 87081

== ENCOUNTER 2017-06-28 08:56 | Outpatient (RCR) | payer BC ==
[2017-05-24 10:00] LABS: BASOPHILS % (AUTO) 0 % (0-10); EOSINOPHILS % (AUTO) 0 % (0-10); LYMPHOCYTES # (AUTO) 0.6 X 10^3 (1.0-4.0); LYMPHOCYTES % (AUTO) 8 % (12-44); MEAN CORPUSCULAR HEMOGLOBIN 29 PG (25-34); MEAN CORPUSCULAR HGB CONC 32 G/DL (32-36); MEAN CORPUSCULAR VOLUME 92 FL (80-99); MEAN PLATELET VOLUME 9.5 FL (7.4-10.4); MONOCYTES # (AUTO) 0.4 X 10^3 (0.0-1.0); MONOCYTES % (AUTO) 5 % (0-12); NEUTROPHILS # (AUTO) 6.4 X 10^3 (1.8-7.8); NEUTROPHILS % (AUTO) 87 % (42-75); PLATELET COUNT 209 10^3/uL (130-400); RED BLOOD COUNT 3.17 10^6/uL (4.35-5.85); RED CELL DISTRIBUTION WIDTH 16.3 % (10.0-14.5); WHITE BLOOD COUNT 7.4 10^3/uL (4.3-11.0)
[2017-05-24 10:20] LABS: ANION GAP 6 MMOL/L (5-14); BLOOD UREA NITROGEN 10 MG/DL (7-18); BUN/CREATININE RATIO 13; CALCIUM 8.5 MG/DL (8.5-10.1); CARBON DIOXIDE 31 MMOL/L (21-32); CHLORIDE 100 MMOL/L (98-107); CREATININE SERUM 0.75 MG/DL (0.60-1.30); GFR ESTIMATED > 60; GLUCOSE 127 MG/DL (70-105); POTASSIUM 3.5 MMOL/L (3.6-5.0); SODIUM 137 MMOL/L (135-145)
--- NOTE | 2017-05-30 13:54 | Diagnostic Imaging Report ---
INDICATION: Increasing shortness of air. COMPARISON: 04/07/2017. FINDINGS: Frontal and lateral radiographic views of the chest were obtained and again show scattered diffuse patchy and confluent alveolar opacities bilaterally. There does appear to be some mild improved aeration when compared to prior exam. No large effusion or pneumothorax is seen. Cardiac silhouette and pulmonary vasculature within normal limits. Left-sided subclavian Port-A-Cath is noted. Bony structures are stable. IMPRESSION: 1. Mild improved aeration, but with persistent scattered patchy and confluent opacities consistent with patient's known metastatic disease. Dictated by: Dictated on workstation # [id number]
[2017-05-30 14:16] LABS: BASOPHILS % (AUTO) 0 % (0-10); EOSINOPHILS % (AUTO) 0 % (0-10); LYMPHOCYTES # (AUTO) 0.8 X 10^3 (1.0-4.0); LYMPHOCYTES % (AUTO) 9 % (12-44); MEAN CORPUSCULAR HEMOGLOBIN 29 PG (25-34); MEAN CORPUSCULAR HGB CONC 31 G/DL (32-36); MEAN CORPUSCULAR VOLUME 93 FL (80-99); MONOCYTES # (AUTO) 0.4 X 10^3 (0.0-1.0); MONOCYTES % (AUTO) 4 % (0-12); NEUTROPHILS # (AUTO) 7.7 X 10^3 (1.8-7.8); NEUTROPHILS % (AUTO) 87 % (42-75); PLATELET COUNT 207 10^3/uL (130-400); RED BLOOD COUNT 2.73 10^6/uL (4.35-5.85); RED CELL DISTRIBUTION WIDTH 16.5 % (10.0-14.5); WHITE BLOOD COUNT 8.9 10^3/uL (4.3-11.0)
[2017-05-30 15:01] LABS: ANION GAP 8 MMOL/L (5-14); BLOOD UREA NITROGEN 9 MG/DL (7-18); BUN/CREATININE RATIO 13; CALCIUM 8.4 MG/DL (8.5-10.1); CARBON DIOXIDE 28 MMOL/L (21-32); CHLORIDE 101 MMOL/L (98-107); CREATININE SERUM 0.69 MG/DL (0.60-1.30); GFR ESTIMATED > 60; GLUCOSE 113 MG/DL (70-105); POTASSIUM 3.7 MMOL/L (3.6-5.0); SODIUM 137 MMOL/L (135-145)
[2017-06-07 09:23] LABS: BASOPHILS # (AUTO) 0.1 10^3/uL (0.0-0.1); BASOPHILS % (AUTO) 1 % (0-10); EOSINOPHILS # (AUTO) 0.1 10^3/uL (0.0-0.3); EOSINOPHILS % (AUTO) 0 % (0-10); LYMPHOCYTES # (AUTO) 1.1 X 10^3 (1.0-4.0); LYMPHOCYTES % (AUTO) 6 % (12-44); MEAN CORPUSCULAR HEMOGLOBIN 29 PG (25-34); MEAN CORPUSCULAR HGB CONC 31 G/DL (32-36); MEAN CORPUSCULAR VOLUME 94 FL (80-99); MEAN PLATELET VOLUME 8.6 FL (7.4-10.4); MONOCYTES # (AUTO) 1.9 X 10^3 (0.0-1.0); MONOCYTES % (AUTO) 10 % (0-12); NEUTROPHILS % (AUTO) 83 % (42-75); RED BLOOD COUNT 3.23 10^6/uL (4.35-5.85); RED CELL DISTRIBUTION WIDTH 18.8 % (10.0-14.5); WHITE BLOOD COUNT 19.1 10^3/uL (4.3-11.0)
[2017-06-07 09:24] LABS: PLATELET COUNT 1105 10^3/uL (130-400)
[2017-06-07 09:46] LABS: ALANINE AMINOTRANSFERASE 18 U/L (0-55); ALBUMIN 2.9 GM/DL (3.2-4.5); ANION GAP 9 MMOL/L (5-14); ASPARTATE AMINO TRANSFERASE 21 U/L (5-34); BILIRUBIN,TOTAL 0.7 MG/DL (0.1-1.0); BLOOD UREA NITROGEN 13 MG/DL (7-18); BUN/CREATININE RATIO 18; CALCIUM 8.3 MG/DL (8.5-10.1); CARBON DIOXIDE 29 MMOL/L (21-32); CHLORIDE 99 MMOL/L (98-107); CREATININE SERUM 0.72 MG/DL (0.60-1.30); GFR ESTIMATED > 60; GLUCOSE 109 MG/DL (70-105); POTASSIUM 4.2 MMOL/L (3.6-5.0); SODIUM 137 MMOL/L (135-145); TOTAL PROTEIN 6.3 GM/DL (6.4-8.2)
--- NOTE | 2017-06-07 11:12 | Diagnostic Imaging Report ---
PROCEDURE: CT angiography of the chest with contrast. TECHNIQUE: Multiple contiguous axial images were obtained through the chest after uneventful bolus administration of intravenous contrast. Reconstructed CTA MIP acquisitions were also performed. INDICATION: Shortness of breath. There are no previous CTA chest examinations available for comparison. The plain film examination of the chest performed on 05/30/2017, noted diffuse parenchymal densities in both lungs. The PET/CT exam performed on 03/01/2017, did indicate widespread parenchymal lung metastatic disease. On this exam there are again multiple parenchymal masses and abnormal densities throughout both lungs. The density along the periphery of the left lung base does seem somewhat more prominent than on the prior study. The other parenchymal densities have not changed significantly. The right pleural effusion noted on the previous PET/CT exam has resolved however. The heart size is within normal limits and stable when compared with the prior study. The aorta is not abnormally dilated. The pulmonary arteries were not fully opacified, but there is no definite defect to suggest a pulmonary embolus. There is no mediastinal or hilar adenopathy. The right lobe of the thyroid is enlarged, and the low-density nodule in the inferior pole of the right lobe of the thyroid seen previously is again evident and no different. There is no obvious breast mass. The sections through the upper abdomen do show that there are several new areas of diminished density within the spleen. These are of uncertain etiology but could be secondary to a vascular phenomenon as opposed to metastatic disease. The postsurgical changes involving the gastroesophageal junction seen previously are again evident. The PET/CT exam did raise the question of hypermetabolic nodes about the pancreas. Those nodes are not included on this study. There does appear to be some gas and fluid in the visualized large and small bowel in a nonspecific fashion. The bone windows show no evidence for a fracture or for a destructive lesion. IMPRESSION: 1. There are diffuse abnormal parenchymal densities throughout both lungs. These are quite similar to the previous PET/CT exam although the density in the left lung base does seem somewhat more prominent. These findings should be considered secondary to metastatic disease until proven otherwise. 2. There is no acute cardiopulmonary abnormality identified. The pulmonary arteries were not well opacified, but there is no definite defect to suggest a pulmonary embolus. 3. The areas of low-density within the spleen may be secondary to a vascular phenomenon instead of metastatic lesions. If further study is desired, then CT of the abdomen with and without contrast would be recommended. 4. There is some gas and fluid in both the large and small bowel in a nonspecific fashion. These results were discussed with Dr. Bailey [facility]. Dictated by: Dictated on workstation # [id number]
[2017-06-13 09:16] LABS: BASOPHILS # (AUTO) 0.2 10^3/uL (0.0-0.1); BASOPHILS % (AUTO) 1 % (0-10); EOSINOPHILS # (AUTO) 0.3 10^3/uL (0.0-0.3); EOSINOPHILS % (AUTO) 2 % (0-10); LYMPHOCYTES # (AUTO) 1.4 X 10^3 (1.0-4.0); LYMPHOCYTES % (AUTO) 9 % (12-44); MEAN CORPUSCULAR HEMOGLOBIN 29 PG (25-34); MEAN CORPUSCULAR HGB CONC 31 G/DL (32-36); MEAN CORPUSCULAR VOLUME 95 FL (80-99); MONOCYTES # (AUTO) 1.5 X 10^3 (0.0-1.0); MONOCYTES % (AUTO) 9 % (0-12); NEUTROPHILS # (AUTO) 12.8 X 10^3 (1.8-7.8); NEUTROPHILS % (AUTO) 79 % (42-75); PLATELET COUNT 903 10^3/uL (130-400); RED CELL DISTRIBUTION WIDTH 19.5 % (10.0-14.5); WHITE BLOOD COUNT 16.2 10^3/uL (4.3-11.0)
[2017-06-13 10:27] LABS: ALANINE AMINOTRANSFERASE 12 U/L (0-55); ALBUMIN 2.8 GM/DL (3.2-4.5); ANION GAP 7 MMOL/L (5-14); ASPARTATE AMINO TRANSFERASE 22 U/L (5-34); BILIRUBIN,TOTAL 0.4 MG/DL (0.1-1.0); BLOOD UREA NITROGEN 13 MG/DL (7-18); BUN/CREATININE RATIO 18; CALCIUM 8.5 MG/DL (8.5-10.1); CARBON DIOXIDE 33 MMOL/L (21-32); CHLORIDE 98 MMOL/L (98-107); CREATININE SERUM 0.73 MG/DL (0.60-1.30); GFR ESTIMATED > 60; GLUCOSE 103 MG/DL (70-105); POTASSIUM 3.2 MMOL/L (3.6-5.0); SODIUM 138 MMOL/L (135-145); TOTAL PROTEIN 6.4 GM/DL (6.4-8.2)
[2017-06-22 11:07] LABS: BASOPHILS # (AUTO) 0.1 10^3/uL (0.0-0.1); BASOPHILS % (AUTO) 1 % (0-10); EOSINOPHILS # (AUTO) 0.1 10^3/uL (0.0-0.3); EOSINOPHILS % (AUTO) 1 % (0-10); LYMPHOCYTES # (AUTO) 1.1 X 10^3 (1.0-4.0); LYMPHOCYTES % (AUTO) 9 % (12-44); MEAN CORPUSCULAR HEMOGLOBIN 30 PG (25-34); MEAN CORPUSCULAR HGB CONC 31 G/DL (32-36); MEAN CORPUSCULAR VOLUME 97 FL (80-99); MEAN PLATELET VOLUME 10.2 FL (7.4-10.4); MONOCYTES # (AUTO) 0.9 X 10^3 (0.0-1.0); MONOCYTES % (AUTO) 8 % (0-12); NEUTROPHILS # (AUTO) 10.2 X 10^3 (1.8-7.8); NEUTROPHILS % (AUTO) 83 % (42-75); PLATELET COUNT 342 10^3/uL (130-400); RED BLOOD COUNT 3.22 10^6/uL (4.35-5.85); RED CELL DISTRIBUTION WIDTH 18.9 % (10.0-14.5); WHITE BLOOD COUNT 12.4 10^3/uL (4.3-11.0)
[2017-06-22 11:27] LABS: ANION GAP 9 MMOL/L (5-14); BLOOD UREA NITROGEN 15 MG/DL (7-18); BUN/CREATININE RATIO 16; CALCIUM 8.6 MG/DL (8.5-10.1); CARBON DIOXIDE 31 MMOL/L (21-32); CHLORIDE 98 MMOL/L (98-107); CREATININE SERUM 0.91 MG/DL (0.60-1.30); GFR ESTIMATED > 60; GLUCOSE 100 MG/DL (70-105); POTASSIUM 3.3 MMOL/L (3.6-5.0); SODIUM 138 MMOL/L (135-145)
[2017-06-24 15:49] LABS: BASOPHILS % (AUTO) 0 % (0-10); EOSINOPHILS # (AUTO) 0.1 10^3/uL (0.0-0.3); EOSINOPHILS % (AUTO) 1 % (0-10); LYMPHOCYTES # (AUTO) 0.5 X 10^3 (1.0-4.0); LYMPHOCYTES % (AUTO) 6 % (12-44); MEAN CORPUSCULAR HEMOGLOBIN 30 PG (25-34); MEAN CORPUSCULAR HGB CONC 31 G/DL (32-36); MEAN CORPUSCULAR VOLUME 97 FL (80-99); MEAN PLATELET VOLUME 10.3 FL (7.4-10.4); MONOCYTES # (AUTO) 0.1 X 10^3 (0.0-1.0); MONOCYTES % (AUTO) 1 % (0-12); NEUTROPHILS # (AUTO) 7.7 X 10^3 (1.8-7.8); NEUTROPHILS % (AUTO) 92 % (42-75); PLATELET COUNT 244 10^3/uL (130-400); WHITE BLOOD COUNT 8.4 10^3/uL (4.3-11.0)
[2017-06-24 16:22] LABS: BAND NEUTROPHILS 0 %; BASOPHILS % (MANUAL) 1 %; EOSINOPHILS % (MANUAL) 0 %; LYMPHOCYTES % (MANUAL) 6 %; NEUTROPHILS % (MANUAL) 93 %
[2017-06-24 16:23] LABS: ANISOCYTOSIS MODERATE; HYPOCHROMASIA SLIGHT; POIKILOCYTOSIS MODERATE; STOMATOCYTES MODERATE
[~2017-06-28] VITALS: Ht 152.4 cm; Wt 92.5 kg
[~2017-06-28 08:56] MED LIST changes: +ACETAMINOPHEN 500 MG TAB (TYLENOL) CANCER CTR ONE; +CATHETER FLUSH 10 ML SYR IV PRN; +GEMCITABINE HCL (GENERIC) 1,000 MG, GEMCITABINE HCL (GENERIC) 500 MG in NS (IVPB) CANCE... IV SCH; +IOHEXOL 350 MG/ML 150 ML (OMNIPAQUE 350) VIAL IV ONE; +NITR-65 PO; +NS 100 ML (IVPB) BAG IV ONE; +NS IV 1000 ML (CANCER CTR) IV SCH; +NS IV 500 ML (CANCER CENTER) 500 ML ONE; +PACLitaxel PROTEIN 170 MG in EMPTY IV BAG (PVC) CANCER CTR 1 EA IV SCH; +PALONOSETRON 0.25 MG, DEXAMETHASONE 10 MG/NS 50 ML IVPB IV PRN; +PHEN-640 PO
[2017-06-28 09:23] LABS: BASOPHILS # (AUTO) 0.1 10^3/uL (0.0-0.1); BASOPHILS % (AUTO) 1 % (0-10); EOSINOPHILS # (AUTO) 0.5 10^3/uL (0.0-0.3); EOSINOPHILS % (AUTO) 5 % (0-10); LYMPHOCYTES # (AUTO) 0.9 X 10^3 (1.0-4.0); LYMPHOCYTES % (AUTO) 10 % (12-44); MEAN CORPUSCULAR HEMOGLOBIN 30 PG (25-34); MEAN CORPUSCULAR HGB CONC 30 G/DL (32-36); MEAN CORPUSCULAR VOLUME 99 FL (80-99); MEAN PLATELET VOLUME 11.1 FL (7.4-10.4); MONOCYTES # (AUTO) 0.1 X 10^3 (0.0-1.0); MONOCYTES % (AUTO) 1 % (0-12); NEUTROPHILS # (AUTO) 8.1 X 10^3 (1.8-7.8); NEUTROPHILS % (AUTO) 83 % (42-75); PLATELET COUNT 276 10^3/uL (130-400); RED BLOOD COUNT 2.88 10^6/uL (4.35-5.85); RED CELL DISTRIBUTION WIDTH 19.1 % (10.0-14.5); WHITE BLOOD COUNT 9.7 10^3/uL (4.3-11.0)
[2017-06-28 09:39] LABS: CALCIUM 8.2 MG/DL (8.5-10.1); CREATININE SERUM 1.78 MG/DL (0.60-1.30); POTASSIUM 4.2 MMOL/L (3.6-5.0)
[2017-06-28] MEDS ORDERED: ONDANSETRON 8 MG, DEXAMETHASONE 4 MG/NS 50 ML IVPB (Cancer Ctr) IV ONE ×3 (09:45)
[2017-06-28 10:37] LABS: ALBUMIN 2.9 GM/DL (3.2-4.5); BILIRUBIN,TOTAL 0.7 MG/DL (0.1-1.0); TOTAL PROTEIN 6.2 GM/DL (6.4-8.2)
[2017-06-28] MEDS ORDERED: SUCRALFATE 1 GM (CARAFATE) TAB PO ONE (10:47)
[2017-06-28] MEDS ORDERED: CALC-694 PO (16:10)
[2017-06-28] MEDS ORDERED: CITA40TA11 PO (16:10)
[2017-06-28] MEDS ORDERED: PANT40TA3 PO (16:10)
[2017-07-05] MEDS ORDERED: ONDA8TAB9 PO (15:03)
== END 2017-07-08 13:57 | disposition home or self-care (01) ==
LOC: ONC 08:56
PROVIDERS: ATTEND Internal Medicine Hematology & Oncology
DX: Z51.11 Encounter for antineoplastic chemotherapy (principal); C34.32 Malignant neoplasm of lower lobe, left bronchus or lung; I10 Essential (primary) hypertension; Z98.84 Bariatric surgery status; Z87.891 Personal history of nicotine dependence; Z80.3 Family history of malignant neoplasm of breast
CPT/HCPCS: 36415; 36430; 71020; 71275; 80048; 80053; 83735; 85007; 85025; 85027; 86304; 86850; 86900; 86901; 86920; 96360; 96375; 96413; 96417

== ENCOUNTER 2017-06-28 12:09 | Inpatient (IN) | payer BC ==
[~2017-06-28] VITALS: Ht 156.2 cm; Wt 101.3 kg
[~2017-06-28 12:09] MED LIST changes: -ACETAMINOPHEN 500 MG TAB (TYLENOL) CANCER CTR ONE; -CATHETER FLUSH 10 ML SYR IV PRN; -GEMCITABINE HCL (GENERIC) 1,000 MG, GEMCITABINE HCL (GENERIC) 500 MG in NS (IVPB) CANCE... IV SCH; -IOHEXOL 350 MG/ML 150 ML (OMNIPAQUE 350) VIAL IV ONE; -NS 100 ML (IVPB) BAG IV ONE; -NS IV 1000 ML (CANCER CTR) IV SCH; -NS IV 500 ML (CANCER CENTER) 500 ML ONE; -PACLitaxel PROTEIN 170 MG in EMPTY IV BAG (PVC) CANCER CTR 1 EA IV SCH; -PALONOSETRON 0.25 MG, DEXAMETHASONE 10 MG/NS 50 ML IVPB IV PRN
[2017-06-28 12:35] VITALS: BP 92/54
--- OUTSIDE RECORDS SUMMARY | 2017-06-28 13:12 | XMS REPORT | Clinical Summary ---
Author Author [facility] Organization [facility] Address Unknown Phone Unavailable Care Team Providers Care Material Manager Name Role Phone PCP Unavailable Source Comments Some departments are not documenting in the electronic medical record. If you do not see the information that you expected, contact Release of Information in the Health Information Management department at [phone] for further assistance in locating additional records.[facility] Allergies No Known Allergies Current Medications Prescription [...] [facility] case number: [id number]. Obtained Via [facility] outpatient on 03/23/2017. Uterus, endometrial biopsy benign endometrial polyp. 2. Phan Third Age [facility] March 15, 2017. Pancreatic body mass, fine-needle [...] x1; x1 vaginal delivery. 5. 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 2. Menarche: 12 3. LMP/menopausal: 49 [...] Drugs: None 3. ETOH: None 4. 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 5. Marital status: 6. Last colonoscopy: 03/15/2017 x1 polyp 7. Last Mammogram: August 2016 FH: 1. Cancer: Mother had breast cancer in her late 50s. Encounters Date Type Specialty Care Team Description 2017 Office Visit Oncology Brianda Tran MD Ovarian mass ( Primary Dx) 03/31/2017 Telephone Oncology Brianda Tran MD Navigation Assessment from Last 3 Months Family History Medical [...]
--- OUTSIDE RECORDS SUMMARY | 2017-06-28 13:12 | XMS REPORT | Encounter Summary ---
Author Author [facility] Organization [facility] Address Unknown Phone Unavailable Care Team Providers Care Imaging Specialist Name Role Phone PCP Unavailable Reason for Visit * Reason Comments Navigation Assessment Encounter Details Date Type Department Care Team Description 03/31/2017 Telephone [facility] Brianda Tran MD Navigation Assessment [facility] [address] [place] [address] [place] [address] [phone] Social History Tobacco Use Types Packs/Day Years Used Date Never Assessed Sex Assigned at Date Recorded Not on file as of this encounter Plan of Treatment Not on fileas of this encounter Visit Diagnoses Not on filein this encounter
--- OUTSIDE RECORDS SUMMARY | 2017-06-28 13:12 | XMS REPORT | Encounter Summary ---
Author Author [facility] Organization [facility] Address Unknown Phone Unavailable Care Team Providers Care J2Ee Java Developer Name Role Phone PCP Unavailable Reason for [...] behavior of [address] [place], [place] genitourinary [id number] organ Phone: Phone: Pelvic mass/elev [phone] CA125, Fax: [facility]/ [phone] PPODiego, PJTeddy, BERENICE P rocedures PA OFFICE CONSULTATION,MIRANDA Bo MD-NEW PATIENT Encounter Details Date Type Department Care Team Description 2017 Office Visit [facility] Brianda Tran MD Ovarian mass (Primary Dx) [facility] [address] [place] [address] [place] [address] [phone] Social History Tobacco Use Types Packs/Day Years [...] 1. [facility] case number: [id number]. Obtained Via [facility] outpatient on 03/23/2017. Uterus, endometrial biopsybenign endometrial polyp. 2. Phan FiveRuns March 15, 2017. Pancreatic body mass, fine- [...] 3. Cholecystectomy 4. section 5. Tubal ligation [facility] RHEUMATOLOGY: 1. 2. Menarche: 12 3. LMP/menopausal: 49 [...] Drugs: None 3. ETOH: None 4. 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 5. Marital status: 6. Last colonoscopy: [...] any questions, please call. Brianda Tran MD Lead Housekeeper Gynecology Oncology Department of Obstetrics/Gynecology in this encounter Plan of Treatment Not on fileas of this encounter Visit Diagnoses Diagnosis Ovarian mass - Primary Unspecified noninflammatory disorder of ovary, fallopian tube, and broad ligament in this encounter
[2017-06-28] MEDS ORDERED: PANTOPRAZOLE 40 MG/10 ML (PROTONIX) VIAL ONE (13:14)
[2017-06-28] MEDS: NS IV 1000 ML 1,000 ML IV SCH ×2 (13:29→23:26)
--- NOTE | 2017-06-28 15:05 | Consultation ---
History of Present Illness History of Present Illness Patient Consulted On(daryl/time) 06/28/17 15:05 Date Seen by Provider: Jun 28, 2017 Time Seen by Provider: 15:05 Reason for Visit: increasing size of pelvic mass History of Present Illness Asked to see Mrs. Luis by Dr. 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 This is a patient referred to Dr. Diaz by Dr. Bailey. She has stage 4 pancreatic cancer (metastasis to the lungs). she was in the cancer center today but was sent to the floor due to vomiting, hypoxemia and low blood pressure. chemotherapy was held today Last chemotherapy was1 week ago. she has had 2 courses of chemotherapy (gemcitabine and Abraxane). She has a mass in the pelvis/abdomen that has not responded to chemotherapy. It is suspected that this is ovarian in nature. The most recent CT scan shows that there is a [id number] cm mass in the abdomen. This is mostly solid in nature but is complex. There is a small amount of pelvic fluid but no obvious ascites. She does have fairly new onset of hydronephrosis due to the growth of this abdominal mass. CA-125 177 in 03/09. This has increased to the mid 200s with most recent 202 (06/07/17). the patient was seen in the office by Dr. Diaz last week, and was extensively counseled about addressing this pelvic cystic structure. It was discussed that following tumor markers on this would be of no value due to the peritoneal inflammation secondary to metastasis of an already existing cancer a CA-125 would not hold much value even if it was elevated. I also discussed with the patient that in her weakened state and poor prognosis elective surgery to remove this cystic structure would be a higher risk of mortality. he has been asymptomatic regarding This abdominopelvic mass. At this point due to patient being asymptomatic she is opting to do nothing as she is not uncomfortable. She did have some concern about firmness in her right abdomen, but has realized that this is her lap band port that has been pushed to the surface because of the mass. It is palpable just beneath the skin. Per her, this is slightly displaced. Mrs. Luis has been seen at [facility] in March to discuss treatment of the abdominopelvic mass. The patient initially presented with shortness of air and a CT of the chest revealed pulmonary nodules these were biopsied and the diagnosis was made of an adenocarcinoma of unknown primary. This has been since been shown to be pancreatic with metastases to the lung, She has been asymptomatic regarding the abdominopelvic mass. This was found on CT scan. But it has not been sensitive to chemotherapy. While her other tumor mass has gotten smaller, the suspected ovarian mass has enlarged. However, due to the prognosis of metastatic pancreatic cancer, it was discussed with her in March, at [facility], with Dr. Tran, that hysterectomy, or removal of this mass, or biopsy of the mass, would not change the prognosis of the pancreatic cancer. Currently, she does have new onset right hydronephrosis. She is beginning to show signs of impairment of the kidney function (creat 1.79). She had stent placement on 06/20/17. She is unable to tolerate chemotherapy at this time due to hypoxemia, hypotension, nausea and emesis, and suspected dehydration. Removal, or biopsy of this suspected ovarian mass would not change the prognosis , and may hasten progression of disease due to the possibility of studding. We will discuss with Dr. Bailey, however at this time I do not recommend any further evaluation of this mass, and I would encourage palliative care for this patient. If the patient and family wish further evaluation, Gynecologic recommendation would be to defer to gynecologic oncology recommendations, and it has been recommended by Dr. Tran that no further evaluation or treatment of this mass be done at this time. However, if the patient and family requests further evaluation, I would recommend that this be done at [facility] or other tertiary care center that provides gynecologic oncology. Allergies and Home Medications Allergies Coded Allergies: No Known Drug Allergies (Unverified , 06/17/17) Home Medications Calcium Carbonate 600 Mg Tablet, 600 MG PO DAILY, (Reported) Citalopram Hydrobromide 20 Mg Tablet, 20 MG PO DAILY, (Reported) Docusate Sodium 100 Mg Tablet, 100 MG PO DAILY, (Reported) Ferrous Sulfate 325 Mg Capsule.er, 325 MG PO DAILY, (Reported) Fish Oil/Dha/Epa 1 Each Capsule, 1 EACH PO DAILY, (Reported) Furosemide 40 Mg Tablet, 40 MG PO DAILY, (Reported) Lisinopril 20 Mg Tablet, 20 MG PO DAILY, (Reported) Metronidazole 250 Mg Tablet, 250 MG PO BID, (Reported) Morphine Sulfate 15 Mg Tablet.er, 15 MG PO BID, (Reported) Multivitamin 1 Each Tablet, 1 EACH PO DAILY, (Reported) Pantoprazole Sodium 40 Mg Granpkt.dr, 40 MG PO BID, (Reported) Polyethylene Glycol 3350 17 Gm Powd.pack, 17 GM PO DAILY, (Reported) Past Mbiyzrt-Esyqsz-Ecnhln Hx Patient Social History Alcohol Use: Denies Use Recreational Drug Use: No Smoking Status: Former Smoker Type Used: Cigarettes Former Smoker, Quit: Dec 20, 2001 Recent Foreign Travel: No Contact w/Someone Who Travel: No Recent Infectious Disease Expo: No Recent Hopitalizations: No Immunizations Up To Date Tetanus Booster (TDap): Unknown Date of Influenza Vaccine: Jul 12, 2016 Seasonal Allergies Seasonal Allergies: No Surgeries History of Surgeries: Yes (BILAT CARPAL TUNNEL, HEEL SPURS BILAT, LAP BAND) Surgeries: Section, Gallbladder, Tubal Ligation Respiratory History of Respiratory Disorde: Yes (LUNG CA, O2 2L NC) Currently Using CPAP: No Currently Using BIPAP: No Cardiovascular History of Cardiac Disorders: Yes Cardiac Disorders: Hypertension Neurological History of Neurological Disord: No Reproductive System Hx Reproductive Disorders: Yes (MASS ON OVARY) Sexually Transmitted Disease: No HIV/AIDS: No 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 Genitourinary History of Genitourinary Disor: No Gastrointestinal History of Gastrointestinal Di: Yes Gastrointestinal Disorders: Gastroesophageal Reflux, Chronic Constipation, Polyps Musculoskeletal History of Musculoskeletal Dis: Yes (MILD) Musculoskeletal Disorders: Arthritis, Chronic Back Pain Endocrine History of Endocrine Disorders: No Endocrine Disorders: Diabetes, Non-Insulin dep HEENT Loss of Vision: Bilateral Hearing Impairment: Denies Cancer History of Cancer: Yes Cancer: Liver, Lung, Ovarian, Pancreatic Did You Recieve Any Treatments: Yes Type of Tx Receive: Chemotherapy Psychosocial History of Psychiatric Problem: Yes Behavioral Health Disorders: Depression Integumentary History of Skin or Integumenta: No Blood Transfusions History of Blood Disorders: Yes (ANEMIA) Adverse Reaction to a Blood Tr: No (N/A) Family Medical History Family Medial History: Neoplasm 18 MOTHER (breast cancer met to bones) Review of Systems-General Constitutional: dizziness, malaise EENTM: no symptoms reported Respiratory: dyspnea on exertion, orthopnea, short of breath Cardiovascular: edema Gastrointestinal: loss of appetite, nausea, vomiting Genitourinary: no symptoms reported, No discharge, No dysuria, No frequency, No hematuria, No hesitancy, No incontinence, No nocturia, No pain, other ( menopausal since age 41. 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 She's had no further bleeding.) Musculoskeletal: back pain Skin: no symptoms reported, other (alopecia) Psychiatric/Neurological: Anxiety Physical Exam-General Problems Physical Exam Vital Signs Vital Sign - Last 12Hours 06/28/17 12:35 Temp 96.6 Pulse 86 Resp 20 B/P (MAP) 92/54 Pulse Ox 99 O2 Delivery Room Air O2 Flow Rate 2.00 Capillary Refill : General Appearance: mild distress Gastrointestinal: other (large abdominopelvic mass palpable under the xiphoid to the pubic symphysis. this mass is nontender. But it encompass as the entire abdomen. In the right mid abdomen there is the palpable lap band port.) Rectal: deferred Genital/Rectal: other (deferred) Extremities: pedal edema Skin: other (alopecia), pallor Assessment/Plan Assessment/Plan Admission Diagnosis/Plan 1. Pancreatic cancer with lung metastases 2. abdominopelvic mass Initially this was suggested to metastasis from the pancreas, however it has not responded to chemotherapy and has doubled in size. In addition it is causing hydronephrosis. It is not recommended however to biopsy, or remove, this mass at this time. Biopsy through the skin runs the risk of spreading, studding the peritoneum. It would not change the outcome of the metastatic pancreatic cancer either. So at this time I recommend not proceeding with further evaluation or treatment of this mass. However if further treatment or evaluation is warranted or desired, I would recommend referral back to allie and Dr. Tran. 3. Right hydronephrosis with renal insufficiency noted (creatinine of 1.79); s/ p right ureteral stent on 06/20/17. Thank you for the consultation and do not hesitate to contact me or Dr. Diaz for further questions or concerns. I saw the patient with her son in the room. She understands that, at this time , no further biopsy or removal is recommended, though, at the beginning of my evaluation, she was under the impression that She would be having a hysterectomy. This is not the case. And she does understand this at this time. Clinical Quality Measures DVT/VTE Risk/Contraindication: Risk Factor Score Per Nursin RFS Level Per Nursing on Admit: 4+=Very High MEME BOSS DO Jun 28, 2017 15:05
[2017-06-28] MEDS ORDERED: PANT40TA3 PO (16:10)
[2017-06-28] MEDS ORDERED: CALC-694 PO (16:10)
[2017-06-28] MEDS ORDERED: CITA40TA11 PO (16:10)
[2017-06-28 16:17] VITALS: BP 106/72
[2017-06-28] MEDS: ONDANSETRON 4 MG/2 ML (SDV) Z0FRAN IVP PRN (16:53)
[2017-06-28] MEDS: morphine ER 15 MG (MS CONTIN) TAB PO SCH (20:19)
[2017-06-28 20:35] VITALS: BP 106/71
--- NOTE | 2017-06-28 23:58 | HISTORY AND PHYSICAL ---
DATE OF SERVICE: 06/28/2017 The patient is admitted to room #420. PRESENTING COMPLAINTS: Nausea, vomiting, and increasing weakness. HISTORY OF PRESENT ILLNESS: The patient is a 62-year-old female who was diagnosed with metastatic pancreatic cancer to the lungs and adrenal gland in 02/2017. She had developed respiratory systems and a chest x-ray had shown lung nodules. After CT scan, she had a CT-guided biopsy of her lung nodule which was an enteric-type adenocarcinoma. PET/CT scan had shown pancreatic mass as well as an adrenal mass. The patient also had a large pelvic mass which was not significantly hypermetabolic. She underwent biopsy of the pancreatic mass which turned out to be an adenocarcinoma of the pancreas and similar to the lung biopsy. She was referred to GOLF COURSE ARCHITECT oncology at [facility] [place] regarding the pelvic mass and was advised to start treatment for the metastatic pancreatic cancer as this would be her probable cause of . Since then, she has completed palliative chemotherapy with Abraxane and gemcitabine regimen for the past 3 months with recent restaging scan showing a significant response to the pancreatic mass, lung mass, as well as the adrenal mass. In the interim, the pelvic mass has grown significantly and is occupying most of the pelvis and majority of the abdominal cavity. Over the last 2 weeks, she was having increased swelling in both lower extremities, most likely because of venous and lymphatic obstruction. She was having right hydronephrosis and had a stent placed recently. She was seen at the cancer center last Tuesday because of weakness and hypotension and her antihypertensive medication, as well as diuretics were discontinued and given IV fluids. Over the weekend, she continued to have increasing abdominal discomfort and nausea as well as vomiting and came back to the cancer center today. Her renal function is worsening over the weekend and thus decided to admit her to the hospital for IV hydration and further management. PAST MEDICAL HISTORY: Significant for diabetes of metastatic pancreatic cancer to the lungs and adrenal gland as mentioned above and treated above. She has a history of hypertension diagnosed more than 10 years ago, glucose intolerance, which is controlled with diet alone. She had lap band placed in 2011 and has lost 85-100 pounds since then. Since early 2016, she continued losing weight again but has recently gained weight because of fluid retention. Other surgeries including a more than 30 years ago and a tubal ligation a few months later. Cholecystectomy approximately 25 years ago, bilateral carpal tunnel surgery approximately 25 years ago. SOCIAL HISTORY: The patient is to her current for the last few years and lives in [facility]. She has 2 children, a daughter age 40 years and a son age 30 years, both of whom live close by. 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 She had used tobacco in the past but quit about 20 years ago, and denied any alcohol or recreational drug use. FAMILY HISTORY: Significant for her mother who was diagnosed with breast cancer while in her late 50s. No other malignancies in the family that the patient knows of. PHYSICAL EXAMINATION: Today showed an elderly female, weak-appearing, awake and oriented and in mild discomfort with the nausea. Temperature was 96.6, pulse rate of 86, respirations 20, blood pressure 92/54, with a pulse oximetry of 99% on 2 liters of oxygen by nasal cannula. HEENT: Normocephalic with significant thinning of hair. Extraocular muscles intact. Conjunctivae slightly pale. Oral mucosa slightly dry. NECK: Supple, with no JVD. No cervical, supraclavicular or axillary lymphadenopathy palpable. CHEST: Symmetrical. LUNGS: With slightly diminished breath sounds bilaterally without wheezes or rales. CARDIOVASCULAR: Regular in rate and rhythm, borderline tachycardic. No murmurs or gallops heard. ABDOMEN: Distended with the reservoir of the lap band in the right lower quadrant, which is prominent and palpable. Very significant fullness of the abdomen with the firmness in the lower half of the abdomen without palpable margins of the mass. EXTREMITIES: Showed 3 to 4+ edema of bilateral lower extremities. No edema of the upper extremities. NEUROLOGICAL: Showed no focal motor deficits. CBC done today at the cancer center showed WBC of 9.7, hemoglobin 8.5, platelet count 276,000 with neutrophil count of 8.1. Chemistry panel today showed relatively normal electrolytes. BUN was 28 and creatinine 1.78 with GFR 29 mL per minute. Liver function studies were within normal, except albumin level of 2.9. A BMP done on 06/22/2017 had shown BUN 15, creatinine 0.91 with GFR more than 60 mL per minute. Most recent CT scan of the abdomen and pelvis done on 06/10/2017 showed a very large complex mixed cystic and solid pelvic mass arising from the pelvis and extending to the level about the renal etssa measuring 26 x 26 x 16 cm. Previously, this measured 15.4 x 12.7 x 14 cm on 02/24/2017. Right hydroureteronephrosis, which is new, was noted. The pancreatic body mass is much less conspicuous than on prior study. No new liver lesions noted. IMPRESSION: 1. Metastatic pancreatic cancer to the lungs and adrenal glands, on chemotherapy with Abraxane and gemcitabine regimen since the last 3 months with some benefit. 2. Large pelvic mass, probably arising from the ovary, not resectable per gynecologic oncology in 02/2017. Currently this mass is causing right hydroureteronephrosis and bilateral lower extremity edema, as well as discomfort. 3. Nausea and vomiting, probably related to the large abdominopelvic mass. 4. Acute renal insufficiency, probably related to obstructive nephropathy with a recent stent placement. This may also be worsened by clinical dehydration. PLAN: 1. I will admit the patient to the hospital and hydrate her with normal saline at 100 mL per hour. 2. Will obtain consultations with Dr. Mcdonnell for general medical care as well as with Dr. Diaz for a GOLF COURSE ARCHITECT evaluation regarding the pelvic mass. 3. I will withhold further chemotherapy for the pancreatic cancer at this point. 4. Her prognosis is poor from the abdominopelvic mass. I would discuss about best supportive care prior to discharge and if she is willing for this, may consider hospice referral prior to discharge. Job ID: [id number] DocumentID: [id number] Dictated Date: 06/28/2017 18:25:26 Hoop Cutter Date: 06/28/2017 23:40:20 Dictated By: ODESSA LUNDBERG MD [facility]
[2017-06-29] VITALS (7 sets, daily range): BP systolic 76–111; BP diastolic 46–67
[2017-06-29] MEDS: ONDANSETRON 4 MG/2 ML (SDV) Z0FRAN IVP PRN ×2 (00:02→06:19)
[2017-06-29] MEDS: CATHETER FLUSH 10 ML SYR IV PRN ×2 (06:20→08:42)
[2017-06-29] MEDS: POLYETHYLENE GLYCOL 17 GM (MIRALAX) PACK PO SCH (08:42)
[2017-06-29] MEDS: PANTOPRAZOLE 40 MG/10 ML (PROTONIX) VIAL IV SCH (08:42)
[2017-06-29] MEDS: NS IV 1000 ML 1,000 ML IV SCH ×2 (08:43→18:40)
[2017-06-29] MEDS: morphine ER 15 MG (MS CONTIN) TAB PO SCH ×2 (08:43→20:07)
[2017-06-29] MEDS ORDERED: DOCUSATE SODIUM 100 MG (COLACE) CAP PO SCH (09:00)
[2017-06-29] MEDS ORDERED: NON-FORMULARY MEDICATION 1 EA EA (Citalopram Hydrobromide (Citalopram HBr) 40 MG) PO SCH (09:00)
[2017-06-29] MEDS ORDERED: NON-FORMULARY MEDICATION 1 EA EA (Docusate Sodium (Stool Softener) 100 MG) PO SCH (09:00)
--- NOTE | 2017-06-29 13:24 | Consultation ---
History of Present Illness History of Present Illness Patient Consulted On(daryl/time) 06/29/17 13:19 Date Seen by Provider: Jun 29, 2017 Time Seen by Provider: 13:19 Reason for Visit: increasing size of pelvic mass History of Present Illness This is a 62 year old female who has been undergoing treatment for pancreatic cancer with metastasis to her lungs and adrenal gland. She also has a know pelvic mass that was felt to be unresectable by gynecology. She has had recent increase in edema of her legs as well as renal insufficiency. Her most recent scans showed improvement to the pancreatic mass and metastatic foci but her pelvic mass had dramatically increased in size causing hydronephrosis as well as pelvic congestion with resulting venous congestion of her legs. She was having worsening renal insufficiency with hypotension and it was decided to admit her for treatment and evaluation. I am asked to consult for medical management. Allergies and Home Medications Allergies Coded Allergies: No Known Drug Allergies (Unverified , 06/17/17) Home Medications Calcium Carbonate/Vitamin D3 1 Each Tablet, 1 TAB PO DAILY, (Reported) Citalopram Hydrobromide 40 Mg Tablet, 40 MG PO DAILY, (Reported) Docusate Sodium 100 Mg Tablet, 100 MG PO DAILY, (Reported) Ferrous Sulfate 325 Mg Capsule.er, 325 MG PO DAILY, (Reported) Fish Oil/Dha/Epa 1 Each Capsule, 1,200 MG PO DAILY, (Reported) Lisinopril 20 Mg Tablet, 20 MG PO DAILY, (Reported) Morphine Sulfate 15 Mg Tablet.er, 15 MG PO BID, (Reported) Multivitamin 1 Each Tablet, 1 TAB PO DAILY, (Reported) Pantoprazole Sodium 40 Mg Tablet.dr, 40 MG PO BID, (Reported) Polyethylene Glycol 3350 17 Gm Powd.pack, 17 GM PO DAILY, (Reported) Past Pqfawlt-Hrsipo-Sutidy Hx Patient Social History Alcohol Use: Denies Use Recreational Drug Use: No Smoking Status: Former Smoker Type Used: Cigarettes Former Smoker, Quit: Dec 20, 2001 Recent Foreign Travel: No Contact w/Someone Who Travel: No Recent Infectious Disease Expo: No Recent Hopitalizations: No Immunizations Up To Date Tetanus Booster (TDap): Unknown Date of Influenza Vaccine: Jul 12, 2016 Seasonal Allergies Seasonal Allergies: No Surgeries History of Surgeries: Yes (BILAT CARPAL TUNNEL, HEEL SPURS BILAT, LAP BAND) Surgeries: Section, Gallbladder, Tubal Ligation Respiratory History of Respiratory Disorde: Yes (LUNG CA, O2 2L NC) Currently Using CPAP: No Currently Using BIPAP: No Cardiovascular History of Cardiac Disorders: Yes Cardiac Disorders: Hypertension Neurological History of Neurological Disord: No Reproductive System Hx Reproductive Disorders: Yes (MASS ON OVARY) Sexually Transmitted Disease: No 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 Genitourinary History of Genitourinary Disor: No Gastrointestinal History of Gastrointestinal Di: Yes Gastrointestinal Disorders: Gastroesophageal Reflux, Chronic Constipation, Polyps Musculoskeletal History of Musculoskeletal Dis: Yes (MILD) Musculoskeletal Disorders: Arthritis, Chronic Back Pain Endocrine History of Endocrine Disorders: No Endocrine Disorders: Diabetes, Non-Insulin dep HEENT Loss of Vision: Bilateral Hearing Impairment: Denies Cancer History of Cancer: Yes Cancer: Liver, Lung, Ovarian, Pancreatic Did You Recieve Any Treatments: Yes Type of Tx Receive: Chemotherapy Psychosocial History of Psychiatric Problem: Yes Behavioral Health Disorders: Depression Integumentary History of Skin or Integumenta: No Blood Transfusions History of Blood Disorders: Yes (ANEMIA) Adverse Reaction to a Blood Tr: No (N/A) Family Medical History Family Medial History: Neoplasm 19 MOTHER (breast cancer met to bones) Review of Systems-General Constitutional: weakness, weight gain (recently due to edema) EENTM: No see HPI, No no symptoms reported, No ear discharge, No hearing loss, No ear pain, No blurred vision, No double vision, No eye pain, No tearing, No vision loss, No dental problems, No hoarseness, No mouth pain, No mouth swelling , No epistaxis, No nose congestion, No nose pain, No throat pain, No throat swelling, No other Respiratory: short of breath Cardiovascular: edema Gastrointestinal: abdominal pain, constipation, nausea Musculoskeletal: back pain, muscle weakness Skin: No no symptoms reported, No see HPI, No change in color, No change in hair/nails, No dryness, No hx of skin cancer, No lesions, No lumps, No pruritus , No rash, No other Psychiatric/Neurological: Weakness Physical Exam-General Problems Physical Exam Vital Signs Vital Sign - Last 12Hours 06/28/17 12:35 Temp 96.6 Pulse 86 Resp 20 B/P (MAP) 92/54 Pulse Ox 99 O2 Delivery Room Air O2 Flow Rate 2.00 Capillary Refill : General Appearance: mild distress HEENT: normal ENT inspection Neck: supple Respiratory: lungs clear, decreased breath sounds Cardiovascular: regular rate, rhythm, gallop/S4 Gastrointestinal: soft, distended, tenderness Rectal: deferred Back: no CVA tenderness Extremities: non-tender, no calf tenderness, pedal edema Neurologic/Psychiatric: alert, oriented x 3, motor weakness (diffuse) Skin: warm/dry Assessment/Plan Assessment/Plan Admission Diagnosis/Plan 1. Acute Renal Insufficiency--admit, hydrate and monitor BUN/Cr 2. Edema due to enlarging pelvic mass--SNOW TECHNICIAN consulted 3. Hypertension with current hypotension--BP meds held and hydrating and monitoring BP 4. Diabete mellitus II--off meds, will start accuchecks with SSI 5. Acute on Chronic Anemia--monitor H/H 6. Pancreatic Cancer with mets--chemo on hold but recent scans showed improvement but worsening in pelvic mass so overall prognosis is poor Clinical Quality Measures DVT/VTE Risk/Contraindication: Risk Factor Score Per Nursin RFS Level Per Nursing on Admit: 4+=Very High GUDELIA GARLAND DO Jun 29, 2017 13:24
--- NOTE | 2017-06-29 15:08 | Progress Note-Standard ---
Standard Progress Note Progress Notes/Assess & Plan Date Seen by Provider: Jun 29, 2017 Time Seen by Provider: 14:55 Progress/Assessment & Plan 62 year old female with history of metastatic pancreatic cancer to the lungs, adrenal gland and bone who was on chemotherapy with Abraxane and gemcitabine, admitted with nausea vomiting, dehydration and renal insufficiency. Patient had a cystic/solid pelvic mass which has increased significantly hydronephrosis or ptosis and vascular and lymphatic obstruction with lower extremity edema. This mass was felt to be unresectable by [employer] oncology at the time of diagnosis. Today patient is feeling slightly better. She had only one episode of mild and has not required any antiemetics. She is eating better. She is passing urine without problem. She has not had a bowel movement for 4 days. Vital Sign - Last 12Hours Date Time Temp Pulse Resp B/P (MAP) Pulse Ox O2 Delivery O2 Flow Rate FiO2 06/29/17 12:48 96.6 101 20 107/52 98 Nasal Cannula 3.00 Physical examination showed an elderly female, awake and oriented and in no acute distress. Oral mucosa moist. No JVD. Lungs fairly clear to auscultation without wheezes or rales. Cardiovascular exam was regular with missed beats. No murmurs or gallops heard. Extremities showed 3+ edema of lower extremities. A/P: 1. Nausea, vomiting and dehydration. Clinically improved today. Continue IV hydration and recheck lab work tomorrow morning. 2. Metastatic pancreatic cancer to the lungs, adrenal glands as well as bone. On chemotherapy with Abraxane plus gemcitabine regimen with a partial response. 3. Large pelvic/abdominal mass probably of ovarian origin. Unresectable per [employer] oncology. Currently this mass is increasing in size and causing obstructive symptoms. Monitor renal function tomorrow morning. 4. Appreciate Dr. Mcdonnell and Dr. Kumar's input. 5. Constipation, we will try Dulcolax suppository today. 6. Overall prognosis poor. ODESSA LUNDBERG Jun 29, 2017 15:07
[2017-06-29] MEDS: inSUlin (REGULAR) HUMAN 1 UNIT/0.01 ML (CHARGE PER UNIT) SC SCH ×2 (18:07→21:11)
[2017-06-29] MEDS: AMITRIPTYLINE 25 MG (ELAVIL) TAB PO SCH (20:07)
[2017-06-29] MEDS: DOCUSATE SODIUM 100 MG (COLACE) CAP PO SCH (20:07)
[2017-06-30] VITALS (9 sets, daily range): BP systolic 87–119; BP diastolic 47–78
[2017-06-30] MEDS: NS IV 1000 ML 1,000 ML IV SCH ×2 (04:49→14:47)
[2017-06-30] MEDS: inSUlin (REGULAR) HUMAN 1 UNIT/0.01 ML (CHARGE PER UNIT) SC SCH ×4 (04:51→21:21)
[2017-06-30 07:30] LABS: BASOPHILS # (AUTO) 0.1 10^3/uL (0.0-0.1); BASOPHILS % (AUTO) 1 % (0-10); EOSINOPHILS # (AUTO) 0.1 10^3/uL (0.0-0.3); EOSINOPHILS % (AUTO) 3 % (0-10); LYMPHOCYTES # (AUTO) 1.1 X 10^3 (1.0-4.0); LYMPHOCYTES % (AUTO) 23 % (12-44); MEAN CORPUSCULAR HEMOGLOBIN 29 PG (25-34); MEAN CORPUSCULAR HGB CONC 29 G/DL (32-36); MEAN CORPUSCULAR VOLUME 100 FL (80-99); MEAN PLATELET VOLUME 10.3 FL (7.4-10.4); MONOCYTES # (AUTO) 0.3 X 10^3 (0.0-1.0); MONOCYTES % (AUTO) 7 % (0-12); NEUTROPHILS # (AUTO) 3.1 X 10^3 (1.8-7.8); NEUTROPHILS % (AUTO) 66 % (42-75); PLATELET COUNT 185 10^3/uL (130-400); RED BLOOD COUNT 2.51 10^6/uL (4.35-5.85); WHITE BLOOD COUNT 4.7 10^3/uL (4.3-11.0)
[2017-06-30 07:48] LABS: ALBUMIN 2.8 GM/DL (3.2-4.5); BILIRUBIN,TOTAL 0.6 MG/DL (0.1-1.0); CALCIUM 8.2 MG/DL (8.5-10.1); CREATININE SERUM 1.74 MG/DL (0.60-1.30); POTASSIUM 4.5 MMOL/L (3.6-5.0); TOTAL PROTEIN 5.8 GM/DL (6.4-8.2)
[2017-06-30] MEDS: POLYETHYLENE GLYCOL 17 GM (MIRALAX) PACK PO SCH (09:40)
[2017-06-30] MEDS: ONDANSETRON 4 MG/2 ML (SDV) Z0FRAN IVP PRN (09:40)
[2017-06-30] MEDS: PANTOPRAZOLE 40 MG/10 ML (PROTONIX) VIAL IV SCH (09:40)
[2017-06-30] MEDS: DOCUSATE SODIUM 100 MG (COLACE) CAP PO SCH ×2 (09:40→19:54)
[2017-06-30] MEDS: morphine ER 15 MG (MS CONTIN) TAB PO SCH ×2 (09:40→19:54)
[2017-06-30] MEDS ORDERED: ACETAMINOPHEN 500 MG TAB (TYLENOL) PO ONE (09:45)
[2017-06-30] MEDS: BISACODYL 10 MG SUPP (DULCOLAX) PR PRN (10:00)
[2017-06-30] MEDS ORDERED: FLEET ENEMA ADULT 1 EA BTL PR PRN ×2 (12:30→12:45)
--- NOTE | 2017-06-30 12:38 | Progress Note (SOAP) ---
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 Still c/o no bowel movement. Objective Exam Vital Signs Date Time Temp Pulse Resp B/P (MAP) Pulse Ox O2 Delivery O2 Flow Rate FiO2 06/30/17 11:54 Nasal Cannula 2.00 06/30/17 08:00 97.1 128 20 93/56 98 Nasal Cannula 2.00 06/29/17 23:15 97.9 92 18 94/61 96 Nasal Cannula 2.00 06/29/17 20:45 97.6 100 18 92/61 99 Nasal Cannula 2.00 06/29/17 20:10 Nasal Cannula 3.00 06/29/17 16:10 97.1 89 20 102/67 97 Nasal Cannula 2.00 06/29/17 12:48 96.6 101 20 107/52 98 Nasal Cannula 3.00 Capillary Refill : General Appearance: No Apparent Distress Neck: Supple Respiratory: Lungs Clear Cardiovascular: Regular Rate, Rhythm Gastrointestinal: soft, distended, tenderness (generalized but mild) Extremity: Non Tender, No Calf Tenderness, Pedal Edema Neurologic/Psychiatric: Alert, Oriented x3 Skin: Pallor Results Lab Laboratory Tests 06/29/17 17:45: Glucometer 163H 06/29/17 20:45: Glucometer 139H 06/30/17 04:51: Glucometer 108 06/30/17 06:28: White Blood Count 4.7, Red Blood Count 2.51L, Hemoglobin 7.3L, Hematocrit 25L, Mean Corpuscular Volume 100H, Mean Corpuscular Hemoglobin 29, Mean Corpuscular Hemoglobin Concent 29L, Red Cell Distribution Width 19.0H, Platelet Count 185, Mean Platelet Volume 10.3, Neutrophils (%) (Auto) 66, Lymphocytes (%) (Auto) 23 , Monocytes (%) (Auto) 7, Eosinophils (%) (Auto) 3, Basophils (%) (Auto) 1, Neutrophils # (Auto) 3.1, Lymphocytes # (Auto) 1.1, Monocytes # (Auto) 0.3, Eosinophils # (Auto) 0.1, Basophils # (Auto) 0.1, Sodium Level 136, Potassium Level 4.5, Chloride Level 101, Carbon Dioxide Level 26, Anion Gap 9, Blood Urea Nitrogen 33H, Creatinine 1.74H, Estimat Glomerular Filtration Rate 30, BUN/ Creatinine Ratio 19, Glucose Level 92, Calcium Level 8.2L, Total Bilirubin 0.6, Aspartate Amino Transf (AST/SGOT) 26, Alanine Aminotransferase (ALT/SGPT) 33, Alkaline Phosphatase 74, Total Protein 5.8L, Albumin 2.8L 06/30/17 11:36: Glucometer 122H Assessment/Plan Assessment/Plan Assess & Plan/Chief Complaint 1. Acute Renal Insufficiency due to Dehydration from intractable N/V and post- nephrotic syndrome due to pelvic mass obstructing ureter--N/V improved, continue IVF and monitor BUN/Cr 2. Edema due to enlarging pelvic mass--DEPARTMENT STORE MANAGER consulted but unresectable 3. Hypertension with current hypotension--BP meds held and hydrating and monitoring BP 4. Diabete mellitus II--off meds, continue accuchecks with SSI 5. Acute on Chronic Anemia--transfuse 2u pRBCs today and recheck lab in AM 6. Pancreatic Cancer with mets--chemo on hold but recent scans showed improvement but worsening in pelvic mass so overall prognosis is poor 7. Constipation--fleets enema today Clinical Quality Measures DVT/VTE Risk/Contraindication: Risk Factor Score Per Nursin RFS Level Per Nursing on Admit: 4+=Very High GUDELIA GARLAND DO Jun 30, 2017 12:38
[2017-06-30] MEDS ORDERED: FLEET ENEMA ADULT 1 EA BTL PR NR (12:45)
[2017-06-30] MEDS ORDERED: ACETAMINOPHEN 500 MG TAB (TYLENOL) ONE (15:24)
[2017-06-30] MEDS ORDERED: BISACODYL 10 MG SUPP (DULCOLAX) PR PRN (17:45)
--- NOTE | 2017-06-30 17:51 | Progress Note-Standard ---
Standard Progress Note Progress Notes/Assess & Plan Date Seen by Provider: Jun 30, 2017 Time Seen by Provider: 17:36 Progress/Assessment & Plan 62 year old female with history of metastatic pancreatic cancer to the lungs, adrenal gland and bone who was on chemotherapy with Abraxane and gemcitabine, admitted with nausea vomiting, dehydration and renal insufficiency. Patient had a cystic/solid pelvic mass which has increased significantly hydroureteronephrosis and vascular and lymphatic obstruction with lower extremity edema. Patient underwent right ureteral stent placement approx. 2 weeks ago. The pelvic mass was felt to be unresectable by [facility] oncology at the time of diagnosis. Today patient is feeling slightly better. She denied any significant nausea and has not required any antiemetics. She is eating better. She is passing urine without problem. She had a small bowel movement after dulcolax suppository. Eating a small amount. Vital Sign - Last 12Hours Date Time Temp Pulse Resp B/P (MAP) Pulse Ox O2 Delivery O2 Flow Rate FiO2 06/30/17 15:41 97.9 110 20 102/50 97 Nasal Cannula 2.00 Physical examination showed an elderly female, awake and oriented and in no acute distress. Oral mucosa moist. No JVD. Lungs fairly clear to auscultation without wheezes or rales. Cardiovascular exam was regular with occasional missed beats. No murmurs or gallops heard. Abdomen significantly distended. Hypoactive sounds. Fullness in lower abdomen. Extremities showed 3+ edema of lower extremities. Laboratory Tests 06/30/17 06:28 A/P: 1. Nausea, vomiting and dehydration. Clinically improved. Will decrease IV hydration and recheck lab work tomorrow morning. 2. Metastatic pancreatic cancer to the lungs, adrenal glands as well as bone. On chemotherapy with Abraxane plus gemcitabine regimen with a partial response. 3. Large pelvic/abdominal mass probably of ovarian origin. Unresectable per [facility] [employer] oncology. Currently this mass is increasing in size and causing obstructive symptoms. Bowels working with dulcolax suppository. Continue PRN. 4. Had lengthy discussion with patient her and grand daughter about poor prognosis and limited options. Patient refused another evaluation at [facility]. 5. Constipation, we will try Dulcolax suppository daily as needed. 6. Renal insufficiency due to obstruction by the pelvic mass, s/p right ureteral stent placement. No significant improvement in renal function. 7. Discussed about best supportive care and patient is interested. May need hospice eval prior to discharge. conference services coordinator to coordinate. Overall prognosis poor. 8. Hospitalist service covering this weekend and Dr. Ray next week as I will be out of town. ODESSA LUNDBERG Jun 30, 2017 17:51
[2017-06-30] MEDS: AMITRIPTYLINE 25 MG (ELAVIL) TAB PO SCH (19:54)
[2017-07-01] MEDS: NS IV 1000 ML 1,000 ML IV SCH ×3 (04:45→22:53)
[2017-07-01] MEDS: inSUlin (REGULAR) HUMAN 1 UNIT/0.01 ML (CHARGE PER UNIT) SC SCH ×4 (05:32→21:33)
[2017-07-01 06:33] LABS: BASOPHILS % (AUTO) 0 % (0-10); EOSINOPHILS # (AUTO) 0.2 10^3/uL (0.0-0.3); EOSINOPHILS % (AUTO) 2 % (0-10); LYMPHOCYTES % (AUTO) 11 % (12-44); MEAN CORPUSCULAR HEMOGLOBIN 29 PG (25-34); MEAN CORPUSCULAR HGB CONC 32 G/DL (32-36); MEAN CORPUSCULAR VOLUME 93 FL (80-99); MEAN PLATELET VOLUME 10.1 FL (7.4-10.4); MONOCYTES # (AUTO) 0.6 X 10^3 (0.0-1.0); MONOCYTES % (AUTO) 6 % (0-12); NEUTROPHILS # (AUTO) 7.3 X 10^3 (1.8-7.8); NEUTROPHILS % (AUTO) 80 % (42-75); PLATELET COUNT 192 10^3/uL (130-400); RED BLOOD COUNT 3.33 10^6/uL (4.35-5.85); RED CELL DISTRIBUTION WIDTH 21.3 % (10.0-14.5); WHITE BLOOD COUNT 9.1 10^3/uL (4.3-11.0)
[2017-07-01 06:51] LABS: CALCIUM 8.3 MG/DL (8.5-10.1); CREATININE SERUM 1.82 MG/DL (0.60-1.30); POTASSIUM 4.6 MMOL/L (3.6-5.0)
[2017-07-01 08:21] VITALS: BP 100/58
[2017-07-01] MEDS: DOCUSATE SODIUM 100 MG (COLACE) CAP PO SCH ×2 (08:47→21:34)
[2017-07-01] MEDS: morphine ER 15 MG (MS CONTIN) TAB PO SCH ×2 (08:47→21:34)
[2017-07-01] MEDS: PANTOPRAZOLE 40 MG/10 ML (PROTONIX) VIAL IV SCH (08:47)
[2017-07-01] MEDS: POLYETHYLENE GLYCOL 17 GM (MIRALAX) PACK PO SCH (08:47)
--- NOTE | 2017-07-01 11:34 | Progress Note (SOAP) ---
Subjective Date Seen by Provider: Jul 01, 2017 Time Seen by Provider: 11:31 Subjective/Events-last exam Fwup acute renal insufficiency due to dehydration from intractable N/V as well as postnephrotic syndrome due to pelvic mass obstructing ureter, Edema due to pelvic congestion from enlarging pelvic mass, hypotension, DMII, constipation, acute on chronic anemia, metastatic pancreatic cancer. Has had several bowel movements yesterday and today so feeling better. Mild nausea last night but non today. Has decided on going with hospice. Objective Exam Vital Signs Date Time Temp Pulse Resp B/P (MAP) Pulse Ox O2 Delivery O2 Flow Rate FiO2 07/01/17 09:00 Nasal Cannula 1.00 07/01/17 08:21 98.5 104 20 100/58 94 Room Air 06/30/17 23:38 97.2 108 20 91/59 94 Nasal Cannula 2.00 06/30/17 21:15 98.4 95 102/66 06/30/17 21:00 Nasal Cannula 1.00 06/30/17 18:55 97.8 90 20 87/47 98 Nasal Cannula 1.00 06/30/17 18:40 97.8 92 20 119/78 98 Nasal Cannula 1.00 06/30/17 18:24 97.8 92 20 119/78 100 Nasal Cannula 06/30/17 16:10 97.0 111 20 119/78 100 Nasal Cannula 06/30/17 15:55 97.9 110 20 119/78 98 Room Air 06/30/17 15:41 97.9 110 20 102/50 97 Nasal Cannula 2.00 06/30/17 11:54 Nasal Cannula 2.00 Capillary Refill : General Appearance: No Apparent Distress Neck: Supple Respiratory: Decreased Breath Sounds Cardiovascular: Regular Rate, Rhythm, Systolic Murmur Gastrointestinal: normal bowel sounds, distended, tenderness Extremity: Non Tender, No Calf Tenderness, Pedal Edema Neurologic/Psychiatric: Alert, Oriented x3 Results Lab Laboratory Tests 06/30/17 11:36: Glucometer 122H 06/30/17 16:07: Glucometer 158H 06/30/17 21:18: Glucometer 113H 07/01/17 05:26: Glucometer 98 07/01/17 06:10: White Blood Count 9.1, Red Blood Count 3.33L, Hemoglobin 9.8#L, Hematocrit 31L, Mean Corpuscular Volume 93, Mean Corpuscular Hemoglobin 29, Mean Corpuscular Hemoglobin Concent 32, Red Cell Distribution Width 21.3H, Platelet Count 192, Mean Platelet Volume 10.1, Neutrophils (%) (Auto) 80H, Lymphocytes (%) (Auto) 11L, Monocytes (%) (Auto) 6, Eosinophils (%) (Auto) 2, Basophils (%) (Auto) 0, Neutrophils # (Auto) 7.3, Lymphocytes # (Auto) 1.0, Monocytes # (Auto) 0.6, Eosinophils # (Auto) 0.2, Basophils # (Auto) 0.0, Sodium Level 136, Potassium Level 4.6, Chloride Level 102, Carbon Dioxide Level 22, Anion Gap 12, Blood Urea Nitrogen 33H, Creatinine 1.82H, Estimat Glomerular Filtration Rate 28, BUN/ Creatinine Ratio 18, Glucose Level 86, Calcium Level 8.3L 07/01/17 10:38: Glucometer 90 Assessment/Plan Assessment/Plan Assess & Plan/Chief Complaint 1. Acute Renal Insufficiency due to Dehydration from intractable N/V and post- nephrotic syndrome due to pelvic mass obstructing ureter--N/V improved, continue IVF and monitor BUN/Cr 2. Edema due to enlarging pelvic mass--NON DESTRUCTIVE EVALUATION SPECIALIST consulted but unresectable 3. Hypertension with current hypotension--BP meds held and hydrating and monitoring BP 4. Diabete mellitus II--off meds, continue accuchecks with SSI 5. Acute on Chronic Anemia--S/P transfusion 6. Pancreatic Cancer with mets--chemo on hold but recent scans showed improvement but worsening in pelvic mass so overall prognosis is poor and has decided on hospice 7. Constipation--improved Clinical Quality Measures DVT/VTE Risk/Contraindication: Risk Factor Score Per Nursin RFS Level Per Nursing on Admit: 4+=Very High GUDELIA GARLAND DO Jul 01, 2017 11:34 am
[2017-07-01 16:05] VITALS: BP 100/56
[2017-07-01] MEDS: ONDANSETRON 4 MG/2 ML (SDV) Z0FRAN IVP PRN (19:19)
[2017-07-01] MEDS: AMITRIPTYLINE 25 MG (ELAVIL) TAB PO SCH (21:34)
[2017-07-02] VITALS: BP 94/58
[2017-07-02] MEDS: ONDANSETRON 4 MG/2 ML (SDV) Z0FRAN IVP PRN (02:01)
[2017-07-02 02:05] VITALS: BP 111/72
[2017-07-02] MEDS: inSUlin (REGULAR) HUMAN 1 UNIT/0.01 ML (CHARGE PER UNIT) SC SCH ×4 (06:22→20:43)
[2017-07-02] MEDS: NS IV 1000 ML 1,000 ML IV SCH (06:59)
[2017-07-02] MEDS: BISACODYL 10 MG SUPP (DULCOLAX) PR PRN (07:03)
[2017-07-02 08:00] VITALS: BP 94/50
[2017-07-02] MEDS: PANTOPRAZOLE 40 MG/10 ML (PROTONIX) VIAL IV SCH (09:06)
[2017-07-02] MEDS: morphine ER 15 MG (MS CONTIN) TAB PO SCH ×2 (09:07→20:44)
[2017-07-02] MEDS: DOCUSATE SODIUM 100 MG (COLACE) CAP PO SCH ×2 (09:07→20:43)
[2017-07-02] MEDS: POLYETHYLENE GLYCOL 17 GM (MIRALAX) PACK PO SCH (09:07)
--- NOTE | 2017-07-02 12:16 | Progress Note-Hospitalist ---
Progress Note Progress Notes/Assess & Plan Date Seen 07/02/17 Time Seen by Provider: 11:30 Diagonsis/Assessment & Plan Nausea continues and she has used Compazine in the past so restarted that Bowels are moving a little bit Oxygen maintained and she does sound wheezy so will and initiate incentive spirometer along with albuterol nebulized treatments Pain is controlled No fever, vital signs stable, family at bedside, chronically ill Regular rate rhythm Wheezing all rendon but no tachypnea 1+ edema Assessment: 1. Acute Renal Insufficiency due to Dehydration from intractable N/V and post- nephrotic syndrome due to pelvic mass obstructing ureter--N/V improved, continue IVF and monitor BUN/Cr 2. Edema due to enlarging pelvic mass--CONCRETE VAULT MAKER consulted but unresectable 3. Hypertension with current hypotension--BP meds held and hydrating and monitoring BP 4. Diabete mellitus II--off meds, continue accuchecks with SSI 5. Acute on Chronic Anemia--S/P transfusion 6. Pancreatic Cancer with mets--chemo on hold but recent scans showed improvement but worsening in pelvic mass so overall prognosis is poor and has decided on hospice 7. Constipation--improved 8. Volume overload will DC IVF Plan: IS Nebs Compazine Poor prognosis HLIVF ALEJANDRA GRANADOS DO Jul 02, 2017 12:16
[2017-07-02] MEDS: PROCHLORPERAZINE 10 MG/2ML INJ (COMPAZINE) IV PRN (12:20)
[2017-07-02] MEDS: RT-ALBUTEROL SULF 2.5 MG/3 ML PRE-MIX VIAL IH SCH ×2 (15:23→19:27)
[2017-07-02 15:37] VITALS: BP 101/57
[2017-07-02] MEDS: AMITRIPTYLINE 25 MG (ELAVIL) TAB PO SCH (20:43)
[2017-07-03] VITALS: BP 101/51
[2017-07-03] MEDS: inSUlin (REGULAR) HUMAN 1 UNIT/0.01 ML (CHARGE PER UNIT) SC SCH ×4 (06:15→20:45)
[2017-07-03] MEDS: PROCHLORPERAZINE 10 MG/2ML INJ (COMPAZINE) IV PRN (07:15)
[2017-07-03 08:00] VITALS: BP 101/51
[2017-07-03] MEDS: morphine ER 15 MG (MS CONTIN) TAB PO SCH ×2 (09:43→20:29)
[2017-07-03] MEDS: PANTOPRAZOLE 40 MG/10 ML (PROTONIX) VIAL IV SCH (09:43)
[2017-07-03] MEDS: DOCUSATE SODIUM 100 MG (COLACE) CAP PO SCH ×2 (09:43→20:28)
[2017-07-03] MEDS: POLYETHYLENE GLYCOL 17 GM (MIRALAX) PACK PO SCH (09:43)
[2017-07-03] MEDS: RT-ALBUTEROL SULF 2.5 MG/3 ML PRE-MIX VIAL IH SCH ×3 (09:59→20:02)
--- NOTE | 2017-07-03 12:13 | Progress Note-Hospitalist ---
Progress Note Progress Notes/Assess & Plan Date Seen 07/03/17 Time Seen by Provider: 11:10 Diagonsis/Assessment & Plan Nausea has improved Wheezing still present but goes without her O2 now most of the time unless she exerts herself and goes to the bathroom Pain is controlled No fever, vital signs stable, family at bedside, chronically ill Regular rate rhythm Wheezing all rendon but no tachypnea 1+ edema Assessment: 1. Acute Renal Insufficiency due to Dehydration from intractable N/V and post- nephrotic syndrome due to pelvic mass obstructing ureter--N/V improved, HLIVF and monitor BUN/Cr 2. Edema due to enlarging pelvic mass--CRIMINAL PSYCHOLOGIST consulted but unresectable 3. Hypertension with current hypotension--BP meds held and hydrating and monitoring BP 4. Diabetes mellitus II--off meds, continue accuchecks with SSI 5. Acute on Chronic Anemia--S/P transfusion 6. Pancreatic Cancer with mets--chemo on hold but recent scans showed improvement but worsening in pelvic mass so overall prognosis is poor and has decided on hospice 7. Constipation--improved 8. Volume overload HLIVF Plan: IS Nebs Compazine Poor prognosis HLIVF Disposition per PCP on Hospice Needs DNR order ALEJANDRA GRANADOS DO Jul 03, 2017 12:13
[2017-07-03] MEDS: ONDANSETRON 4 MG/2 ML (SDV) Z0FRAN IVP PRN (12:26)
[2017-07-03] MEDS: BISACODYL 10 MG SUPP (DULCOLAX) PR PRN (13:47)
[2017-07-03 15:26] VITALS: BP 105/57
[2017-07-03 19:41] VITALS: BP 114/55
[2017-07-03] MEDS: AMITRIPTYLINE 25 MG (ELAVIL) TAB PO SCH (20:28)
[2017-07-04] VITALS: BP 109/52
[2017-07-04] MEDS: PROCHLORPERAZINE 10 MG/2ML INJ (COMPAZINE) IV PRN ×3 (02:21→20:17)
[2017-07-04] MEDS: inSUlin (REGULAR) HUMAN 1 UNIT/0.01 ML (CHARGE PER UNIT) SC SCH ×4 (05:58→21:01)
[2017-07-04] MEDS: RT-ALBUTEROL SULF 2.5 MG/3 ML PRE-MIX VIAL IH SCH ×3 (07:11→20:10)
[2017-07-04 08:00] VITALS: BP 100/56
[2017-07-04] MEDS: PANTOPRAZOLE 40 MG/10 ML (PROTONIX) VIAL IV SCH (08:51)
[2017-07-04] MEDS: DOCUSATE SODIUM 100 MG (COLACE) CAP PO SCH ×2 (09:16→20:17)
[2017-07-04] MEDS: morphine ER 15 MG (MS CONTIN) TAB PO SCH ×2 (09:16→20:18)
[2017-07-04] MEDS: POLYETHYLENE GLYCOL 17 GM (MIRALAX) PACK PO SCH (09:17)
[2017-07-04] MEDS: ONDANSETRON 4 MG/2 ML (SDV) Z0FRAN IVP PRN (13:21)
[2017-07-04 16:10] VITALS: BP 110/72
[2017-07-04] MEDS: AMITRIPTYLINE 25 MG (ELAVIL) TAB PO SCH (20:18)
[2017-07-05 00:21] VITALS: BP 116/57
[2017-07-05] MEDS: PROCHLORPERAZINE 10 MG/2ML INJ (COMPAZINE) IV PRN (05:23)
[2017-07-05] MEDS: CATHETER FLUSH 10 ML SYR IV PRN (05:23)
[2017-07-05] MEDS: inSUlin (REGULAR) HUMAN 1 UNIT/0.01 ML (CHARGE PER UNIT) SC SCH ×2 (06:22→11:43)
[2017-07-05 08:00] VITALS: BP 94/67
[2017-07-05] MEDS: RT-ALBUTEROL SULF 2.5 MG/3 ML PRE-MIX VIAL IH SCH (08:11)
[2017-07-05] MEDS: POLYETHYLENE GLYCOL 17 GM (MIRALAX) PACK PO SCH (08:14)
[2017-07-05] MEDS: DOCUSATE SODIUM 100 MG (COLACE) CAP PO SCH (08:14)
[2017-07-05] MEDS: morphine ER 15 MG (MS CONTIN) TAB PO SCH (08:14)
[2017-07-05] MEDS: BISACODYL 10 MG SUPP (DULCOLAX) PR PRN (08:14)
[2017-07-05] MEDS: PANTOPRAZOLE 40 MG/10 ML (PROTONIX) VIAL IV SCH (08:14)
[2017-07-05] MEDS ORDERED: ONDA8TAB9 PO (15:03)
[2017-07-06] MEDS ORDERED: PANTOPRAZOLE 40 MG (PROTONIX) TAB PO SCH (07:00)
--- NOTE | 2017-07-20 19:53 | Discharge Summary ---
Diagnosis/Chief Complaint Date of Admission Jun 28, 2017 at 12:35 Date of Discharge Jul 05, 2017 at 15:48 Discharge Date: Jul 05, 2017 Discharge Diagnosis 1. Acute Renal Insufficiency due to Dehydration from intractable N/V and post- nephrotic syndrome due to pelvic mass obstructing ureter--N/V improved but ongoing renal insufficiency 2. Edema due to enlarging pelvic mass--UPHOLSTERY BUNDLER consulted but unresectable 3. Hypertension with current hypotension--BP meds held 4. Diabetes mellitus II--off meds, stable 5. Acute on Chronic Anemia--S/P transfusion 6. Pancreatic Cancer with mets--chemo on hold but recent scans showed improvement but worsening in pelvic mass so overall prognosis is poor and has decided on hospice 7. Constipation--improved 8. Volume overload Reason Hospital Visit This is a 62 year old female who has been undergoing treatment for pancreatic cancer with metastasis to her lungs and adrenal gland. She also has a know pelvic mass that was felt to be unresectable by gynecology. She has had recent increase in edema of her legs as well as renal insufficiency. Her most recent scans showed improvement to the pancreatic mass and metastatic foci but her pelvic mass had dramatically increased in size causing hydronephrosis as well as pelvic congestion with resulting venous congestion of her legs. She was having worsening renal insufficiency with hypotension and it was decided to admit her for treatment and evaluation. I am asked to consult for medical management. Discharge Summary Hospital Course Hospital Course This is a 62 year old female who has been undergoing treatment for pancreatic cancer with metastasis to her lungs and adrenal gland. She also has a know pelvic mass that was felt to be unresectable by gynecology. She has had recent increase in edema of her legs as well as renal insufficiency. Her most recent scans showed improvement to the pancreatic mass and metastatic foci but her pelvic mass had dramatically increased in size causing hydronephrosis as well as pelvic congestion with resulting venous congestion of her legs. She was having worsening renal insufficiency with hypotension and it was decided to admit her for treatment and evaluation. I was asked to consult for medical management. She was given IVF and antiemetics and her nausea and vomiting did improve with this regimen. However, she continued to have ongoing renal insufficiency. Her hypotension was stable with IVFs. She did have constipation which required MOM, senokot-S, miralax, dulcolax suppository and fleets enema for resolution. She did require blood transfusion during her hospital stay. Gynecology was once again consulted and still felt that her pelvic mass was unresectable. The patient decided on discharge with hospice so a palliative care consult was ordered and the patient was discharged home with hospice. Procedures None. Discharge Physical Examination Allergies: Coded Allergies: No Known Drug Allergies (Unverified , 06/17/17) General Appearance: Alert, Oriented X3, Mild Distress Respiratory: Clear to Auscultation Abdominal: Soft, Other (masses and ascites) Extremities: Other (2 plus edema) Neuro: Other (weakness) Psych/Mental Status: Mental Status NL Discharge Home Medications Reviewed and agree with Discharge Medication list on patient's Discharge Instruction sheet Instructions to Patient/Family Please see electronic discharge instructions given to patient. Clinical Quality Measures DVT/VTE Risk/Contraindication: Risk Factor Score Per Nursin RFS Level Per Nursing on Admit: 4+=Very High GUDELIA GARLAND DO Jul 20, 2017 19:53
--- NOTE | 2017-07-27 13:31 | Physician Query Clarification ---
PQ-Further Specificity Admission/Discharge Admission Date: Jun 28, 2017 at 12:35 Discharge Date: Jul 05, 2017 at 15:48 The medical record reflects the following clinical scenario: History/Risk Factors: Metastatic pancreatic CA to lungs and adrenal gland Clinical Findings: N/V, increased weakness Treatment: Chemo now on hold Question: Can you further specify the site of the pancreatic CA and the laterality of the metastasis of the adrenal gland (right, left, bilateral) per the clinical indicators above? Please document below. 1.Please specify the site of the pancreatic CA 2. Please specify the laterality of the metastasis of the adrenal gland (right, left, bilateral) 3. Other, with explanation of the clinical findings. 4. Clinically undetermined, no explanation for the clinical findings. 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 Not adrenal metastasis. In responding to this query, please exercise your independent professional judgment. The purpose of this communication is to more accurately reflect the complexity of your patients condition. The fact that a question is asked does not imply that any particular answer is desired or expected. Thank you for your timely response to this clarification. Requestors name: Hao THIS PHYSICIAN QUERY FORM IS A PERMANENT PART OF THE MEDICAL RECORD HAO CHAPMAN Jul 27, 2017 13:31 ODESSA LUNDBERG Aug 03, 2017 15:47
== END 2017-07-05 15:48 | disposition hospice, home (50) | DRG 699 ==
LOC: 4TH 12:35
PROVIDERS: ADMIT Internal Medicine Hematology & Oncology; ATTEND Internal Medicine Hematology & Oncology
DX: N28.9 Disorder of kidney and ureter, unspecified (principal); E86.0 Dehydration; R19.07 Generalized intra-abdominal and pelvic swelling, mass and lump; N13.1 Hydronephrosis with ureteral stricture, not elsewhere classified; I95.89 Other hypotension; N13.8 Other obstructive and reflux uropathy; C25.1 Malignant neoplasm of body of pancreas; C78.01 Secondary malignant neoplasm of right lung; C78.02 Secondary malignant neoplasm of left lung; C79.51 Secondary malignant neoplasm of bone; I87.1 Compression of vein; I10 Essential (primary) hypertension; K21.9 Gastro-esophageal reflux disease without esophagitis; K59.00 Constipation, unspecified; N04.9 Nephrotic syndrome with unspecified morphologic changes; E11.9 Type 2 diabetes mellitus without complications; D64.9 Anemia, unspecified; E87.79 Other fluid overload; Z87.891 Personal history of nicotine dependence
CPT/HCPCS: 36415; 80048; 80053; 82962; 85025; 86850; 86900; 86901; 86920; 94640; 94664; 94760